=== PATIENT | male | born 1995 | race Caucasian/White ===

== ENCOUNTER 2017-01-30 00:53 | Emergency (ER) | payer OTHER ==
--- NOTE | 2017-01-30 01:14 | PDOC ---
History of Present Illness - General History Source: Patient Exam Limitations: No Limitations - History of Present Illness Initial Comments: 01/30/17 01:23 The patient is a 21-year-old male, with no significant past medical history, who presents to the ED with lower abdominal pain that began yesterday. Patient states that the pain was persistent throughout the day but he was still able to eat regularly. Pts last meal was at 3 PM. he reports vomiting 5x prior to his visit. Pt denies any fever, chills, or diarrhea. <Ximena Cooper - Last Filed: 01/30/17 01:23> - General History Source: Patient <Heriberto Thurman - Last Filed: 01/30/17 04:08> - General Stated Complaint: ABDOMINAL PAIN Time Seen by Provider: 01/30/17 01:11 Past History <Ximena Cooper - Last Filed: 01/30/17 01:23> - Past Medical History Diabetes: Yes - Psycho/Social/Smoking Cessation Hx Suicidal Ideation: No Smoking History: Never smoked <Heriberto Thurman - Last Filed: 01/30/17 04:08> - Past Medical History Allergies/Adverse Reactions: Allergies Allergy/AdvReac Type Severity Reaction Status Date / Time No Known Allergies Allergy Verified 01/30/17 01:46 Home Medications: Ambulatory Orders Insulin Glargine,Hum.rec.anlog [Lantus (nf)] 25 units SQ DAILY 01/30/17 Review of Systems - Review of Systems Able to Perform ROS?: Yes Comments:: 01/30/17 01:24 CONSTITUTIONAL: Absent: fever, no chills, no fatigue EYES: Absent: visual changes ENT: Absent: ear pain, no sore throat CARDIOVASCULAR: Absent: chest pain, no palpitations RESPIRATORY: Absent: cough, no SOB GI: Present: abdominal pain, nausea, vomiting Absent: no constipation, no diarrhea GENITOURINARY: Absent: dysuria, no frequency, no hematuria MUSKULOSKELETAL: Absent: back pain, no arthralgia SKIN: Absent: rash NEURO: Absent: headache <Ximena Cooper - Last Filed: 01/30/17 01:23> *Physical Exam - Vital Signs Last Vital Signs Temp Pulse Resp BP Pulse Ox 97.9 F 73 16 143/84 100 01/30/17 01:19 01/30/17 01:19 01/30/17 01:19 01/30/17 01:19 01/30/17 01:19 - Physical Exam Comments: 01/30/17 01:25 GENERAL: Well-appearing, well-nourished. +Moderate distress. HEENT: Normocephalic, atraumatic. PERRL, EOM intact. CARDIOVASCULAR: Normal S1, S2. Regular rate and rhythm. PULMONARY: Clear to auscultation bilaterally. ABDOMEN: Soft, non-distended, non-tender. EXTREMITIES: Normal ROM in all four extremities. No gross deformities. SKIN: Warm, dry. No rash NEUROLOGICAL: No focal neurological deficits. <Ximena Cooper - Last Filed: 01/30/17 01:23> ED Treatment Course - LABORATORY CBC & Chemistry Diagram: 01/30/17 01:25 01/30/17 01:25 <Heriberto Thurman - Last Filed: 01/30/17 04:08> Medical Decision Making - Medical Decision Making 01/30/17 04:05 Dr. Thurman: The scribe's documentation has been prepared under my direction and personally reviewed by me in its entirery. I confirm that the note above accurately reflects all work, treatment, procedures, and medical decision making performed by me. <Heriberto Thurman - Last Filed: 01/30/17 04:08> *DC/Admit/Observation/Transfer <Ximena Cooper - Last Filed: 01/30/17 01:23> - Discharge Dispostion Admit: No <Heriberto Thurman - Last Filed: 01/30/17 04:08> Diagnosis at time of Disposition: Abdominal pain Qualifiers: Abdominal location: generalized Qualified Code(s): R10.84 - Generalized abdominal pain - Discharge Dispostion Disposition: HOME Condition at time of disposition: Stable - Referrals Referrals: Armando Vazquez [Primary Care Provider] - - Patient Instructions Printed Discharge Instructions: DI for Abdominal Pain-Adult
[2017-01-30] MEDS ORDERED: PANTOPRAZOLE SODIUM 40 MG in SODIUM CHLORIDE 100 ML IVPB ONE (01:15)
[2017-01-30] MEDS ORDERED: KETOROLAC TROMETHAMINE 30 MG/1 ML VIAL IVPUSH ONE (01:15)
[2017-01-30] MEDS ORDERED: SODIUM CHLORIDE 1,000 ML IV STA ×2 (01:15→03:00)
[2017-01-30] MEDS ORDERED: ONDANSETRON 4 MG/2 ML VIAL IVPUSH STA (01:15)
[2017-01-30 01:23] VITALS: BP 143/84; PULSE 73; TEMP 97.9; BMI 22.5
[2017-01-30 01:31] LABS: BASOPHIL 0.6 % (0-2.0); MCH 28.6 pg (25.7-33.7); MEAN CELL VOLUME 84.3 fl (80-96); MEAN PLT VOLUME 8.5 fl (7.5-11.1); NEUTROPHILS 82.2 % (42.8-82.8); PLATELET COUNT 218 K/MM3 (134-434); RDW 12.5 % (11.9-15.9); WHITE BLOOD COUNT 11.7 K/mm3 (4.0-10.0)
[2017-01-30] MEDS ORDERED: PANTOPRAZOLE SODIUM 100 ML IVPB ONE (01:40)
[2017-01-30] MEDS ORDERED: KETOROLAC TROMETHAMINE 30 MG/1 ML VIAL ONE (01:40)
[2017-01-30] MEDS ORDERED: ONDANSETRON 4 MG/2 ML VIAL ONE (01:40)
[2017-01-30 02:06] LABS: URINE APPEARANCE CLEAR; URINE BILIRUBIN NEGATIVE (NEGATIVE); URINE BLOOD NEGATIVE (NEGATIVE); URINE COLOR YELLOW; URINE GLUCOSE (UA) 2+ (NEGATIVE); URINE KETONE 2+ (NEGATIVE); URINE LEUK ESTERASE NEGATIVE (NEGATIVE); URINE NITRITE NEGATIVE (NEGATIVE); URINE UROBILINOGEN NEGATIVE E.U./dl (0.2-1.0)
[2017-01-30 02:12] LABS: URINE PROTEIN 2+ (NEGATIVE)
[2017-01-30 02:14] LABS: INR 1.09 (0.82-1.09)
[2017-01-30 02:24] LABS: URINE MUCUS RARE; URINE RBC <1 /hpf (0-3); URINE WBC <1 /hpf (3-5)
[2017-01-30 02:27] LABS: ALBUMIN 4.2 g/dl (3.4-5.0); ALK PHOS 77 U/L (45-117); AMYLASE 79 U/L (25-115); ANION GAP 16 (8-16); BILIRUBIN,TOTAL 1.1 mg/dL (0.2-1.0); CALCIUM 9.7 mg/dL (8.5-10.1); CO2 22 mmol/L (21-32); GLUCOSE,RANDOM 176 mg/dL (74-106); MAGNESIUM 1.6 mg/dL (1.8-2.4); SGOT/AST 18 U/L (15-37); SGPT/ALT 23 U/L (12-78); TOT PROT 7.4 g/dl (6.4-8.2)
[2017-01-30 04:00] LABS: ACETONE SERUM NEGATIVE (NEGATIVE)
== END 2017-01-30 04:12 | disposition home or self-care (01) ==
LOC: JER 00:53
PROC: 3E0337Z Introduction of Electrolytic and Water Balance Substance into Peripheral Vein, Percutaneous Approach (ICD-10-PCS; principal; 2017-01-30)
PROC: 3E033GC Introduction of Other Therapeutic Substance into Peripheral Vein, Percutaneous Approach (ICD-10-PCS; 2017-01-30)
PROC: 3E0333Z Introduction of Anti-inflammatory into Peripheral Vein, Percutaneous Approach (ICD-10-PCS; 2017-01-30)
PROC: 3E033GC Introduction of Other Therapeutic Substance into Peripheral Vein, Percutaneous Approach (ICD-10-PCS; 2017-01-30)
DX: R10.30 Lower abdominal pain, unspecified (principal); E11.9 Type 2 diabetes mellitus without complications; Z79.4 Long term (current) use of insulin
CPT/HCPCS: 36415; 80053; 81003; 81015; 82009; 82150; 83690; 83735; 85025; 85610; 86850; 86900; 86901; 87086; 96361; 96365; 96375; 99282-25

== ENCOUNTER 2017-01-30 23:46 | Inpatient (IN) | payer OTHER ==
[2017-01-30] MEDS ORDERED: ACETAMINOPHEN INJECTION 100 ML IVPB ONE (23:51)
[2017-01-30] MEDS ORDERED: ACETAMINOPHEN 1000 MG/100 ML VIAL (NON FORMULARY) IVPB ONE (23:55)
[2017-01-31] MEDS ORDERED: SODIUM CHLORIDE 0.9% 1000 ML INFUS.BAG IV PRN (00:03)
[2017-01-31 00:04] VITALS: BMI 22.0
[2017-01-31] MEDS ORDERED: LEVOFLOXACIN 500 MG IVPB 100 ML IVPB ONE ×2 (00:06→00:32)
--- NOTE | 2017-01-31 00:07 | PDOC ---
History of Present Illness - General History Source: Patient Exam Limitations: No Limitations - History of Present Illness Initial Comments: 01/31/17 00:14 The patient is a 21 year old male with significant past medical history of diabetes who presents to the ED for fever prior to arrival. Patient was seen here yesterday for abdominal pain, nausea, and vomiting. He was treated and release. Today he returns for a fever tmax 104. States his abdominal pain, nausea, and vomiting has resolved. Denies chills or diaphoresis. The patient denies cough, SOB, chest pain, palpitations, and diarrhea. Allergies: NKDA Social History: No alcohol, tobacco, or drug use reported. Past Surgical History: None reported PCP: None reported <Stella Feldman - Last Filed: 01/31/17 03:46> - General History Source: Patient <JairoHeriberto leone - Last Filed: 01/31/17 19:30> - General Chief Complaint: SIRS, Suspected/Possible Stated Complaint: TACHYCARDIA Time Seen by Provider: 01/31/17 00:02 Past History <Stella Feldman - Last Filed: 01/31/17 03:46> - Past Medical History Diabetes: Yes - Psycho/Social/Smoking Cessation Hx Suicidal Ideation: No Smoking History: Never smoked Have you smoked in the past 12 months: No Hx Alcohol Use: No Drug/Substance Use Hx: No <Heriberto Thurman - Last Filed: 01/31/17 19:30> - Past Medical History Allergies/Adverse Reactions: Allergies Allergy/AdvReac Type Severity Reaction Status Date / Time No Known Allergies Allergy Verified 01/30/17 01:46 Home Medications: Ambulatory Orders Insulin Glargine,Hum.rec.anlog [Lantus (nf)] 25 units SQ DAILY 01/30/17 Review of Systems - Review of Systems Able to Perform ROS?: Yes Comments:: 01/31/17 00:14 CONSTITUTIONAL: +fever Absent: no chills, no fatigue EYES: Absent: visual changes ENT: Absent: ear pain, no sore throat CARDIOVASCULAR: Absent: chest pain, no palpitations RESPIRATORY: Absent: cough, no SOB GI: Absent: abdominal pain, no nausea, no vomiting, no constipation, no diarrhea GENITOURINARY: Absent: dysuria, no frequency, no hematuria MUSCULOSKELETAL: Absent: back pain, no arthralgia, no myalgia SKIN: Absent: rash NEURO: Absent: headache <Stella Feldman - Last Filed: 01/31/17 03:46> *Physical Exam - Vital Signs Last Vital Signs Temp Pulse Resp BP Pulse Ox 104.3 F H 160 H 26 H 100/60 98 01/30/17 23:55 01/30/17 23:55 01/30/17 23:55 01/30/17 23:55 01/30/17 23:55 - Physical Exam Comments: 01/31/17 00:14 GENERAL: Well-appearing, well-nourished. No apparent distress. HEENT: Normocephalic, atraumatic. PERRL, EOM intact. CARDIOVASCULAR: Tachycardia. Regular rhythm. Normal S1, S2. PULMONARY: Clear to auscultation bilaterally. ABDOMEN: Soft, non-distended, non-tender. No rebound or guarding. EXTREMITIES: Normal ROM in all four extremities. No gross deformities. SKIN: Warm, dry. No rash NEUROLOGICAL: No focal neurological deficits. <Stella Feldman - Last Filed: 01/31/17 03:46> Heart Score/ECG Review - ECG Impressions Comment:: 01/31/17 00:28 Sinus tachycardia @111bpm Otherwise normal ECG <Stella Feldman - Last Filed: 01/31/17 03:46> ED Treatment Course - LABORATORY CBC & Chemistry Diagram: 01/31/17 00:25 01/31/17 00:25 - RADIOLOGY Radiograph Interpretation: 01/31/17 03:46 EXAM: CT abdomen and pelvis with contrast Reviewed by Imaging combination presser: FINDINGS: Lung bases are clear. The visualized cardiac chambers are normal size and configuration. Normal liver, gallbladder, pancreas, spleen, adrenal glands and kidneys. The stomach and abdominal small and large bowel are normal. There is no aortic aneurysm. There is no significant retroperitoneal lymphadenopathy. The pelvic small and large bowel are normal. [place] is dilated and mildly inflamed, consistent with acute appendicitis. There is no abscess or free air. The urinary bladder and prostate gland are normal. No pelvic free fluid is identified. There is no significant pelvic lymphadenopathy. IMPRESSION: Acute appendicitis without abscess or free air. - Medications Given in the ED: ED Medications Discontinued Medications Generic Name Dose Route Start Last Admin Trade Name Freq PRN Reason Stop Dose Admin Acetaminophen 1,000 mg 01/30/17 23:55 01/30/17 23:55 Ofirmev Injection - IVPB 01/30/17 23:56 1,000 mg NOW ONE Administration <Stella Feldman - Last Filed: 01/31/17 03:46> - LABORATORY CBC & Chemistry Diagram: 01/31/17 06:00 01/31/17 06:00 - Medications Given in the ED: ED Medications Discontinued Medications Generic Name Dose Route Start Last Admin Trade Name Freq PRN Reason Stop Dose Admin Acetaminophen 1,000 mg 01/30/17 23:55 01/30/17 23:55 Ofirmev Injection - IVPB 01/30/17 23:56 1,000 mg NOW ONE Administration <Heriberto Thurman - Last Filed: 01/31/17 19:30> *DC/Admit/Observation/Transfer - Attestations Scribe Attestion: 01/31/17 00:14 Documentation prepared by Stella Feldman, acting as certified medical dosimetrist for Heriberto Thurman MD/DO. <Stella Feldman - Last Filed: 01/31/17 03:46> - Discharge Dispostion Admit: Yes <Heriberto Thurman - Last Filed: 01/31/17 19:30> Diagnosis at time of Disposition: Appendicitis Qualifiers: Appendicitis type: acute appendicitis Acute appendicitis type: unspecified acute appendicitis type Qualified Code(s): K35.80 - Unspecified acute appendicitis
[2017-01-31 00:33] LABS: VENOUS BLOOD GAS HCO3 18.5 meq/L (19-25); VENOUS PH 7.33 (7.32-7.42)
[2017-01-31 00:39] LABS: BASOPHIL 0.3 % (0-2.0); EOSINOPHIL 0.1 % (0-4.5); MCH 29.4 pg (25.7-33.7); MCHC 34.4 g/dl (32.0-35.9); MEAN CELL VOLUME 85.5 fl (80-96); MEAN PLT VOLUME 8.7 fl (7.5-11.1); NEUTROPHILS 71.9 % (42.8-82.8); PLATELET COUNT 138 K/MM3 (134-434); RDW 12.3 % (11.9-15.9); WHITE BLOOD COUNT 2.3 K/mm3 (4.0-10.0)
[2017-01-31 00:52] LABS: INR 1.25 (0.82-1.09); PROTHROMBIN TIME (PATIENT) 13.8 SEC (9.98-11.88)
[2017-01-31 00:55] LABS: ACTIVATED PTT 27.6 SECONDS (26.9-34.4)
[2017-01-31 01:27] LABS: ALBUMIN 3.2 g/dl (3.4-5.0); ANION GAP 12 (8-16); CALCIUM 7.9 mg/dL (8.5-10.1); CO2 23 mmol/L (21-32); CREATININE 0.9 mg/dL (0.7-1.3); GLUCOSE,RANDOM 250 mg/dL (74-106); SGOT/AST 12 U/L (15-37); SGPT/ALT 16 U/L (12-78)
[2017-01-31 01:31] LABS: ALK PHOS 59 U/L (45-117); BILIRUBIN,TOTAL 0.8 mg/dL (0.2-1.0); TOT PROT 5.5 g/dl (6.4-8.2); TROPONIN I < 0.02 ng/ml (0.00-0.05)
[2017-01-31 01:52] LABS: AMYLASE 49 U/L (25-115)
[2017-01-31 01:54] LABS: URINE APPEARANCE CLEAR; URINE BILIRUBIN NEGATIVE (NEGATIVE); URINE BLOOD NEGATIVE (NEGATIVE); URINE COLOR STRAW; URINE GLUCOSE (UA) 3+ (NEGATIVE); URINE KETONE NEGATIVE (NEGATIVE); URINE LEUK ESTERASE NEGATIVE (NEGATIVE); URINE NITRITE NEGATIVE (NEGATIVE); URINE PROTEIN NEGATIVE (NEGATIVE); URINE UROBILINOGEN NEGATIVE E.U./dl (0.2-1.0)
[2017-01-31] MEDS ORDERED: METRONIDAZOLE 500 MG PREMIXED 100 ML IVPB ONE ×2 (03:47→03:53)
[2017-01-31] MEDS ORDERED: ONDANSETRON 4 MG/2 ML VIAL ONE (04:13)
[2017-01-31] MEDS ORDERED: morphine CARPU-JECT 2 MG/1 ML DISP.SYRIN ONE (04:13)
[2017-01-31] MEDS ORDERED: ONDANSETRON 4 MG/2 ML VIAL IVPUSH ONE (04:19)
[2017-01-31] MEDS ORDERED: morphine CARPU-JECT 2 MG/1 ML DISP.SYRIN IVPUSH ONE (04:20)
--- NOTE | 2017-01-31 04:30 | HP ---
CHIEF COMPLAINT: fevers, sob, back pain HISTORY OF PRESENT ILLNESS: 21 y/o Ukrainian speaking M w/PMH of DM presents to ER after being discharged from ER earlier last night, this time w/complaints of fevers, sob from back pain located in mid lower back. History translated by sister in room. Pt came in earlier into ER for N/V with 5 episodes of vomiting and felt better s/p meds in ER and was discharged home. After returning home since the morning pt has had continuing nausea but no vomiting, subjective fevers, back pain in mid lower back and sob from pain in back. He also c/o feeling cold and having shakes and generalized weakness and palpitations. He was able to eat a little bit earlier today. He took some tylenol with mild relief of symptoms. He denies any CP, cough, LOC, sick contacts, diarrhea, blood in stool, dysuria, blood in urine, peripheral swelling. ER course was notable for: (1) Metronidazole, Levaquin, zofran, Morphine, IV ofirmev, CT abd, CXR (2) (3) Recent Travel: denies PAST MEDICAL HISTORY: Diabetes PAST SURGICAL HISTORY: Denies Social History: Smoking: denies Alcohol: denies Drugs: denies Family History: Mother: HTN; Father: DM Allergies No Known Allergies Allergy (Verified 01/30/17 01:46) HOME MEDICATIONS: Home Medications Medication Instructions Recorded Insulin Glargine,Hum.rec.anlog 25 units SQ DAILY 01/30/17 [Lantus (nf)] REVIEW OF SYSTEMS CONSTITUTIONAL: +fevers, chills, generalized weakness Absent: malaise, loss of appetite, weight change HEENT: Absent: visual changes CARDIOVASCULAR: +palpitations Absent: chest pain, syncope, lightheadedness, peripheral edema RESPIRATORY: +sob Absent: cough, dyspnea with exertion, wheezing GASTROINTESTINAL: +nausea Absent: vomiting, diarrhea, constipation, melena, hematochezia GENITOURINARY: Absent: dysuria, hesitancy, hematuria MUSCULOSKELETAL: +back pain, mid lower back NEUROLOGIC: Absent: headache, dizziness, unsteady gait, seizure PHYSICAL EXAMINATION Vital Signs - 24 hr 01/30/17 01/31/17 23:55 03:40 Temperature 104.3 F H 99.8 F H Pulse Rate 160 H 109 H Pulse Rate [ 109 H Apical] Respiratory 26 H 18 Rate Blood Pressure 100/60 O2 Sat by Pulse 98 99 Oximetry (%) GENERAL: Awake, alert, and fully oriented, in no acute distress. HEAD: Normal with no signs of trauma. EYES: extraocular movements intact, sclera anicteric, conjunctiva clear. No lid lag. EARS, NOSE, THROAT: Ears normal, nares patent, oropharynx clear without exudates. Moist mucous membranes. NECK: Normal range of motion, supple LUNGS: Breath sounds equal, clear to auscultation bilaterally. No wheezes, and no crackles. No accessory muscle use. HEART: tachycardic, normal S1 and S2 without murmur, rub or gallop. ABDOMEN: RLQ tenderness, LLQ tenderness, obturator sign positive, normoactive bowel sounds. MUSCULOSKELETAL: No bony deformities or tenderness. +R CVA tenderness LOWER EXTREMITIES: 2+ pulses, warm, well-perfused. No calf tenderness. No peripheral edema. NEUROLOGICAL: Normal speech. Gait not observed. PSYCHIATRIC: Cooperative. Good eye contact. Appropriate mood and affect. SKIN: Warm, dry Laboratory Results - last 24 hr 01/31/17 01/31/17 01/31/17 00:03 00:20 00:25 WBC 2.3 L D RBC 4.70 Hgb 13.8 D Hct 40.2 D MCV 85.5 MCHC 34.4 RDW 12.3 Plt Count 138 D MPV 8.7 Neutrophils % 71.9 Lymphocytes % 26.2 D Monocytes % 1.5 L Eosinophils % 0.1 D Basophils % 0.3 INR PTT (Actin FS) VBG pH 7.33 POC VBG pCO2 35.8 L POC VBG pO2 49.9 H Mixed VBG HCO3 18.5 L Sodium Potassium Chloride Carbon Dioxide Anion Gap BUN Creatinine Creat Clearance w eGFR Random Glucose Lactic Acid Calcium Total Bilirubin AST ALT Alkaline Phosphatase Creatine Kinase Troponin I Total Protein Albumin Total Amylase 49 D Lipase 61 L Urine Color Urine Appearance Urine pH Urine Protein Urine Glucose (UA) Urine Ketones Urine Blood Urine Nitrite Urine Bilirubin Urine Urobilinogen Ur Leukocyte Esterase Blood Type Antibody Screen 01/31/17 01/31/17 01/31/17 00:25 00:25 00:30 WBC RBC Hgb Hct MCV MCHC RDW Plt Count MPV Neutrophils % Lymphocytes % Monocytes % Eosinophils % Basophils % INR 1.25 H PTT (Actin FS) 27.6 VBG pH POC VBG pCO2 POC VBG pO2 Mixed VBG HCO3 Sodium 140 Potassium 3.7 Chloride 105 Carbon Dioxide 23 Anion Gap 12 BUN 10 D Creatinine 0.9 Creat Clearance w eGFR > 60 Random Glucose 250 H D Lactic Acid Calcium 7.9 L Total Bilirubin 0.8 D AST 12 L D ALT 16 D Alkaline Phosphatase 59 D Creatine Kinase 147 Troponin I < 0.02 Total Protein 5.5 L D Albumin 3.2 L D Total Amylase Lipase Urine Color Urine Appearance Urine pH Urine Protein Urine Glucose (UA) Urine Ketones Urine Blood Urine Nitrite Urine Bilirubin Urine Urobilinogen Ur Leukocyte Esterase Blood Type O NEGATIVE Antibody Screen Negative 01/31/17 01/31/17 01:20 01:43 WBC RBC Hgb Hct MCV MCHC RDW Plt Count MPV Neutrophils % Lymphocytes % Monocytes % Eosinophils % Basophils % INR PTT (Actin FS) VBG pH POC VBG pCO2 POC VBG pO2 Mixed VBG HCO3 Sodium Potassium Chloride Carbon Dioxide Anion Gap BUN Creatinine Creat Clearance w eGFR Random Glucose Lactic Acid 2.2 H* Calcium Total Bilirubin AST ALT Alkaline Phosphatase Creatine Kinase Troponin I Total Protein Albumin Total Amylase Lipase Urine Color Straw Urine Appearance Clear Urine pH 6.0 D Urine Protein Negative Urine Glucose (UA) 3+ H Urine Ketones Negative Urine Blood Negative Urine Nitrite Negative Urine Bilirubin Negative Urine Urobilinogen Negative Ur Leukocyte Esterase Negative Blood Type Antibody Screen Imaging: EXAM: CT abdomen and pelvis with contrast Reviewed by Imaging party plan salesperson: FINDINGS: Lung bases are clear. The visualized cardiac chambers are normal size and configuration. Normal liver, gallbladder, pancreas, spleen, adrenal glands and kidneys. The stomach and abdominal small and large bowel are normal. There is no aortic aneurysm. There is no significant retroperitoneal lymphadenopathy. The pelvic small and large bowel are normal. [place] is dilated and mildly inflamed, consistent with acute appendicitis. There is no abscess or free air. The urinary bladder and prostate gland are normal. No pelvic free fluid is identified. There is no significant pelvic lymphadenopathy. IMPRESSION: Acute appendicitis without abscess or free air. CXR: No acute pathology, pending official read EKG: Sinus tachy @ 111 bpm ASSESSMENT/PLAN: 21 y/o M w/PMH of DM presents to ER with fevers, chills, rigors, nausea and mid lower back pain found to have acute appendicitis on CT abd/pelvis. -Sepsis secondary to appendicitis -SIRS 3/4 (tachy, WBC <4, febrile at 104.3 on presentation) -Lactic acid 2.2, trend -f/u BCx, UCx, official CT read -given levaquin and flagyl in ER -will c/w rocephin 1g qd iv and flagyl 500 mg iv q8h -NS @ 200 ml/hr x2L (reassess blood pressure and give fluids accordingly); morphine 2mg iv q6h prn for pain; zofran 4 mg IV q6h prn -for fevers, consider iv ofirmev or iv ibuprofen if kidney function remains stable as pt is npo -NPO -Surgery consulted -stat CBC ordered as WBC count is now 2.3, compared to last night which was 11.7 -DM -BGMs, ISS q4h -DVT ppx -SCDs -FEN -NS @ 200 ml/hr x2L (reassess blood pressure and give fluids accordingly) -Monitor electrolytes -NPO -Dispo: -Admit to M/S Visit type - Emergency Visit Emergency Visit: Yes ED Registration Date: 01/31/17 Care time: The patient presented to the Emergency Department on the above date and was hospitalized for further evaluation of their emergent condition. - New Patient This patient is new to me today: Yes Date on this admission: 01/31/17 - Critical Care Critical Care patient: No
[2017-01-31] MEDS ORDERED: ONDANSETRON 4 MG/2 ML VIAL IVPUSH PRN ×2 (05:10→15:49)
[2017-01-31] MEDS ORDERED: morphine CARPU-JECT 2 MG/1 ML DISP.SYRIN IVPUSH PRN ×2 (05:10→07:41)
[2017-01-31] MEDS ORDERED: SODIUM CHLORIDE 1,000 ML IV SCH ×2 (05:15→05:23)
--- NOTE | 2017-01-31 05:17 | PN ---
Teaching Attending Note Name of Resident: Gunnar Rico ATTENDING PHYSICIAN STATEMENT I saw and evaluated the patient. I reviewed the resident's note and discussed the case with the resident. I agree with the resident's findings and plan as documented. SUBJECTIVE: Patient is a 21 y/o English speaking M w/PMH of DM presents to ER after being discharged from ER earlier last night, came in c/o having severe RLQ pain with fever of 104 as per sister who is slip injector and applicator. No nausea or vomiting , no rigors. ER course was notable for: OBJECTIVE: Vital Signs Temperature 99.8 F H 01/31/17 03:40 Pulse Rate 109 H 01/31/17 03:40 Respiratory Rate 22 01/31/17 03:40 Blood Pressure 100/60 01/30/17 23:55 O2 Sat by Pulse Oximetry (%) 99 01/31/17 03:40 CBCD WBC 2.3 K/mm3 (4.0-10.0) L D 01/31/17 00:25 RBC 4.70 M/mm3 (4.00-5.60) 01/31/17 00:25 Hgb 13.8 GM/dL (11.7-16.9) D 01/31/17 00:25 Hct 40.2 % (35.4-49) D 01/31/17 00:25 MCV 85.5 fl (80-96) 01/31/17 00:25 MCHC 34.4 g/dl (32.0-35.9) 01/31/17 00:25 RDW 12.3 % (11.9-15.9) 01/31/17 00:25 Plt Count 138 K/MM3 (134-434) D 01/31/17 00:25 MPV 8.7 fl (7.5-11.1) 01/31/17 00:25 CMP Sodium 140 mmol/L (136-145) 01/31/17 00:25 Potassium 3.7 mmol/L (3.5-5.1) 01/31/17 00:25 Chloride 105 mmol/L (98-107) 01/31/17 00:25 Carbon Dioxide 23 mmol/L (21-32) 01/31/17 00:25 Anion Gap 12 (8-16) 01/31/17 00:25 BUN 10 mg/dL (7-18) D 01/31/17 00:25 Creatinine 0.9 mg/dL (0.7-1.3) 01/31/17 00:25 Creat Clearance w eGFR > 60 (>60) 01/31/17 00:25 Random Glucose 250 mg/dL (74-106) H D 01/31/17 00:25 Calcium 7.9 mg/dL (8.5-10.1) L 01/31/17 00:25 Total Bilirubin 0.8 mg/dL (0.2-1.0) D 01/31/17 00:25 AST 12 U/L (15-37) L D 01/31/17 00:25 ALT 16 U/L (12-78) D 01/31/17 00:25 Alkaline Phosphatase 59 U/L (45-117) D 01/31/17 00:25 Total Protein 5.5 g/dl (6.4-8.2) L D 01/31/17 00:25 Albumin 3.2 g/dl (3.4-5.0) L D 01/31/17 00:25 CARDIAC ENZYMES Creatine Kinase 147 IU/L (39-308) 01/31/17 00:25 Troponin I < 0.02 ng/ml (0.00-0.05) 01/31/17 00:25 Current Medications Generic Name Dose Route Start Last Admin Trade Name Freq PRN Reason Stop Dose Admin Sodium Chloride 1,000 mls @ 100 mls/hr 01/31/17 05:15 Normal Saline - IV ASDIR [facility] Ceftriaxone Sodium 1 gm/ 100 mls @ 200 mls/hr 01/31/17 10:00 Dextrose IVPB DAILY [facility] Metronidazole 100 mls @ 100 mls/hr 01/31/17 12:00 Flagyl 500mg Premixed Ivpb - IVPB Q8H-IV [facility] Insulin Aspart 1 vial 01/31/17 07:00 Novolog Vial Sliding Scale - SQ TIDAC [facility] Protocol Morphine Sulfate 2 mg 01/31/17 05:10 Morphine Injection - IVPUSH Q6H PRN PAIN Ondansetron HCl 4 mg 01/31/17 05:10 Zofran Injection IVPUSH Q6H PRN NAUSEA Sodium Chloride 1,000 ml 01/31/17 00:03 Normal Saline - IV Q20M PRN MAP<65mm Hg OR SBP <90 Home Medications Medication Instructions Recorded Insulin Glargine,Hum.rec.anlog 25 units SQ DAILY 01/30/17 [Lantus (nf)] PE: as per resident's note abdomen RLQ severe tenderness with rebound, voluntary guarding. CT abdomen and pelvis with contrast IMPRESSION: Acute appendicitis without abscess or free air. CXR: No acute pathology, pending official read EKG: Sinus tachy @ 111 bpm ASSESSMENT/PLAN: 21 y/o M w/PMHx of DM presents to ER with fevers, chills, rigors, nausea and mid lower back pain found to have acute appendicitis on CT abd/pelvis. # Acute severe Sepsis secondary to appendicitis: on iV antibiotic Rocephin/ flagyl ,iVF 200cc/hr, Lactic acid 2.2, trend, Septic culture ordered, NPO, on morphine, zofran, surgical consult # Acute appendicitis surgical consult for OR today # DM : BGMs, q4h DVT ppx: SCDs
[2017-01-31] MEDS ORDERED: INSULIN SLIDING SCALE (NOVOLOG) 1 VIAL SQ SCH (07:00)
[2017-01-31] MEDS: INSULIN SLIDING SCALE (NOVOLOG) 1 VIAL SQ SCH ×5 (07:13→21:59)
[2017-01-31 07:41] LABS: INR 1.42 (0.82-1.09); PROTHROMBIN TIME (PATIENT) 15.7 SEC (9.98-11.88)
[2017-01-31 07:49] LABS: BASOPHIL 0.2 % (0-2.0); MCH 29.7 pg (25.7-33.7); MCHC 34.6 g/dl (32.0-35.9); MEAN PLT VOLUME 8.8 fl (7.5-11.1); NEUTROPHILS 89.1 % (42.8-82.8); PLATELET COUNT 121 K/MM3 (134-434); RDW 12.7 % (11.9-15.9)
[2017-01-31] MEDS ORDERED: ACETAMINOPHEN 1000 MG/100 ML VIAL (NON FORMULARY) IVPB PRN ×2 (07:53→15:49)
[2017-01-31 08:12] LABS: ALBUMIN 3.1 g/dl (3.4-5.0); ALK PHOS 72 U/L (45-117); ANION GAP 8 (8-16); BILIRUBIN,TOTAL 0.6 mg/dL (0.2-1.0); CALCIUM 8.3 mg/dL (8.5-10.1); CO2 29 mmol/L (21-32); GLUCOSE,RANDOM 103 mg/dL (74-106); SGOT/AST 73 U/L (15-37); SGPT/ALT 45 U/L (12-78); TOT PROT 5.6 g/dl (6.4-8.2)
[2017-01-31 08:20] LABS: MAGNESIUM 1.6 mg/dL (1.8-2.4); PHOSPHOROUS 1.2 mg/dL (2.5-4.9)
[2017-01-31] MEDS ORDERED: MAGNESIUM SULF 50% (8.12 MEQ/2 ML-1 GM VIAL) IVPB ONE (08:44)
[2017-01-31] MEDS ORDERED: POTASSIUM PHOSPHATE 30 MM in DEXTROSE 5%-WATER - 250 ML IVPB ONE (08:44)
[2017-01-31] MEDS ORDERED: SODIUM CHLORIDE 1,000 ML IV STA (09:27)
[2017-01-31] MEDS ORDERED: HYDROmorphone HCL CARPU-JECT 1 MG/1 ML DISP.SYRIN IVPB PRN (09:28)
[2017-01-31] MEDS ORDERED: CEFTRIAXONE 1 GM in DEXTROSE 5%-WATER - 100 ML IVPB SCH (10:00)
[2017-01-31] MEDS ORDERED: cefTRIAXone 1 GM/50 ML BAG (PRE-DOCKED) IVPB SCH (10:00)
[2017-01-31] MEDS ORDERED: METRONIDAZOLE 500 MG PREMIXED 100 ML IVPB SCH (10:00)
--- NOTE | 2017-01-31 11:08 | EKG ---
Test Reason : Blood Pressure : / mmHG Vent. Rate : 111 BPM Atrial Rate : 111 BPM P-R Int : 124 ms QRS Dur : 082 ms QT Int : 314 ms P-R-T Axes : 063 067 025 degrees QTc Int : 427 ms SINUS TACHYCARDIA OTHERWISE NORMAL ECG NO PREVIOUS ECGS AVAILABLE Confirmed by LIZETTE ORTIZ MD ([id number]) on 01/31/2017 11:08:12 AM Referred By: Confirmed By:LIZETTE ORTIZ MD
[2017-01-31] MEDS ORDERED: DEXTROSE 50%-WATER 50 ML DISP.SYRIN ONE (12:21)
[2017-01-31] MEDS ORDERED: DEXTROSE 50%-WATER 50 ML DISP.SYRIN IVPUSH ONE (12:59)
[2017-01-31] MEDS ORDERED: BUPIVACAINE HCL/PF 0.5% (5MG/ML) 10 ML VIAL ONE (13:49)
--- NOTE | 2017-01-31 14:18 | PN ---
Physical Exam: SUBJECTIVE: Patient seen and examined by me at bedside. Patient continues to have fevers overnight. Patient complaints of weakness and chills. Reports having pain and tenderness of the RLQ and LLQ. Patient was told that surgery will likely happen today and is in agreement. Otherwise, patient denies shortness of breath and chest pain. OBJECTIVE: Vital Signs Period Temp Pulse Resp BP Sys/Newman Pulse Ox Last 24 Hr 97.6 F-101.4 F 89-102 18-20 78-118/46-69 100-100 GENERAL: Awake, alert, fully oriented, ill appearing and anxious LUNGS: Breath sounds equal, clear to auscultation bilaterally. No wheezes, and no crackles. No accessory muscle use. HEART: Tachycardic with regular rhythm, normal S1 and S2 without murmur, rub or gallop. ABDOMEN: Tenderness of RLQ and LLQ upon palpation. (+) Rovsing sign, (+) McBurney's signs LOWER EXTREMITIES: No peripheral edema. NEUROLOGICAL: Normal speech, no focal neuro deficits Laboratory Results - last 24 hr 01/31/17 01/31/17 01/31/17 04:20 06:00 06:00 WBC 5.0 D RBC 4.98 Hgb 14.8 Hct 42.8 MCV 86.0 MCHC 34.6 RDW 12.7 Plt Count 121 L MPV 8.8 Neutrophils % 89.1 H D Lymphocytes % 8.3 D Monocytes % 2.4 L Eosinophils % 0.0 D Basophils % 0.2 INR Sodium 141 Potassium 3.5 Chloride 104 Carbon Dioxide 29 D Anion Gap 8 BUN 9 Creatinine 1.0 Creat Clearance w eGFR > 60 POC Glucometer Random Glucose 103 D Lactic Acid 2.3 H* Calcium 8.3 L Phosphorus Magnesium Total Bilirubin 0.6 D AST 73 H D ALT 45 D Alkaline Phosphatase 72 D Total Protein 5.6 L Albumin 3.1 L 01/31/17 01/31/17 01/31/17 06:00 06:00 06:00 WBC RBC Hgb Hct MCV MCHC RDW Plt Count MPV Neutrophils % Lymphocytes % Monocytes % Eosinophils % Basophils % INR 1.42 H Sodium Potassium Chloride Carbon Dioxide Anion Gap BUN Creatinine Creat Clearance w eGFR POC Glucometer Random Glucose Lactic Acid 2.3 H* Calcium Phosphorus 1.2 L Magnesium 1.6 L Total Bilirubin AST ALT Alkaline Phosphatase Total Protein Albumin 01/31/17 01/31/17 01/31/17 07:09 12:08 12:47 WBC RBC Hgb Hct MCV MCHC RDW Plt Count MPV Neutrophils % Lymphocytes % Monocytes % Eosinophils % Basophils % INR Sodium Potassium Chloride Carbon Dioxide Anion Gap BUN Creatinine Creat Clearance w eGFR POC Glucometer 100 66 Random Glucose Lactic Acid 1.3 Calcium Phosphorus Magnesium Total Bilirubin AST ALT Alkaline Phosphatase Total Protein Albumin 01/31/17 13:40 WBC RBC Hgb Hct MCV MCHC RDW Plt Count MPV Neutrophils % Lymphocytes % Monocytes % Eosinophils % Basophils % INR Sodium Potassium Chloride Carbon Dioxide Anion Gap BUN Creatinine Creat Clearance w eGFR POC Glucometer 162 Random Glucose Lactic Acid Calcium Phosphorus Magnesium Total Bilirubin AST ALT Alkaline Phosphatase Total Protein Albumin Active Medications Generic Name Dose Route Start Last Admin Trade Name Freq PRN Reason Stop Dose Admin Acetaminophen 1,000 mg 01/31/17 07:53 01/31/17 08:20 Ofirmev Injection - IVPB 02/01/17 01:54 1,000 mg Q6H PRN Administration FEVER OR PAIN Ceftriaxone Sodium 1 gm 01/31/17 10:00 01/31/17 10:51 Rocephin 1gm Ivpb (Pre-Docked) IVPB 1 gm DAILY RADHA Administration Hydromorphone HCl 1 mg 01/31/17 09:28 01/31/17 12:17 Dilaudid Injection - IVPB 1 mg Q4H PRN Administration PAIN Metronidazole 100 mls @ 100 mls/hr 01/31/17 10:00 01/31/17 10:51 Flagyl 500mg Premixed Ivpb - IVPB 100 mls/hr Q8H-IV RADHA Administration Sodium Chloride 1,000 mls @ 200 mls/hr 01/31/17 05:23 01/31/17 07:12 Normal Saline - IV 02/01/17 10:14 200 mls/hr ASDIR RADHA Administration Potassium Phosphate 30 mm/ 260 mls @ 43.333 mls/hr 01/31/17 08:44 01/31/17 12: 18 Dextrose IVPB 01/31/17 14:43 43.333 mls/hr ONCE ONE Administration Insulin Aspart 1 vial 01/31/17 06:00 01/31/17 12:18 Novolog Vial Sliding Scale - SQ Not Given Q4HPO RADHA Protocol Ondansetron HCl 4 mg 01/31/17 05:10 Zofran Injection IVPUSH Q6H PRN NAUSEA Sodium Chloride 1,000 ml 01/31/17 00:03 Normal Saline - IV Q20M PRN MAP<65mm Hg OR SBP <[address] Abdo/Pelvis: Lung bases are clear. The visualized cardiac chambers are normal size and configuration. Normal liver, gallbladder, pancreas, spleen, adrenal glands and kidneys. The stomach and abdominal small and large bowel are normal. There is no aortic aneurysm. There is no significant retroperitoneal lymphadenopathy. The pelvic small and large bowel are normal. Comfort is dilated and mildly inflamed, consistent with acute appendicitis. There is no abscess or free air. The urinary bladder and prostate gland are normal. No pelvic free fluid is identified. There is no significant pelvic lymphadenopathy. IMPRESSION: Acute appendicitis without abscess or free air. Chest X-Ray: No acute pathology EKG: Sinus tachy @ 111 bpm ASSESSMENT/PLAN: Patient is a 21 year old male with a PMHx of DMI who presented for fevers, chills, nausea, abdominal pain and was found to be Septic. CT abdomen revealed Appendicitis and patient was admitted to med/surg for further monitoring and management. Sepsis Secondary to Bacteremia from Acute Appendicitis -Repeat Lactic 2.3, 1 Bolus ordered -Continue Normal Saline @200mls after two bags -Continue with Rocephin 1gm IVPB daily and Flagyl 500mg IV q8h DAY #1 -Morphine discontinued and switched to Dilaudid 1gm Q4H due to uncontrolled pain -IV Tylenol 1gm Q6H for fevers -NPO for surgery -Cultures growing gram negative -ID consult placed -Currently in Surgery IDDM I -BGM -ISS -Had episode of hypoglycemia, 1 amp of D50 given F/E/N -IV NS @200mls/hr -Electrolytes wnl -NPO until surgery Prophylaxis -SCD's for DVT Disposition -Full code -Waiting for Surgery Visit type - Emergency Visit Emergency Visit: Yes ED Registration Date: 01/31/17 Care time: The patient presented to the Emergency Department on the above date and was hospitalized for further evaluation of their emergent condition. - New Patient This patient is new to me today: Yes Date on this admission: 02/01/17 - Critical Care Critical Care patient: No
[2017-01-31] MEDS ORDERED: PROPOFOL 20 ML ONE (14:21)
[2017-01-31] MEDS ORDERED: LIDOCAINE HCL/PF 2% SDV 5ML VIAL ONE (14:21)
[2017-01-31] MEDS ORDERED: ROCURONIUM BROMIDE 50 MG/5 ML VIAL ONE (14:22)
--- NOTE | 2017-01-31 14:27 | CONSULT ---
Consult Consult Specialty:: Surgery Reason for Consultation:: Abdominal pain , ? acute appendicitis, Daibetes mellitus - History of Present Illness Chief Complaint: Abdominal pain x 2 days History of Present Illness: C/O Right lower quadrant abdominal pain for 2 days, associated with vomitimg. Was in the ER about 2 days ago and was sent home. He returned with persistent pain and was admitted, and found to have acute appendicitis. - History Source History Provided By: Patient, Family Member (Sister speaks [place] very well.) Limitations to Obtaining History: No Limitations - Past Medical History Endocrine: Yes: Diabetes Mellitus (On insulin) - Alcohol/Substance Use Hx Alcohol Use: No - Smoking History Smoking history: Never smoked Have you smoked in the past 12 months: No Home Medications - Allergies Allergies/Adverse Reactions: Allergies Allergy/AdvReac Type Severity Reaction Status Date / Time No Known Allergies Allergy Verified 01/30/17 01:46 - Home Medications Home Medications: Ambulatory Orders Insulin Glargine,Hum.rec.anlog [Lantus (nf)] 25 units SQ DAILY 01/30/17 Physical Exam Vital Signs: Vital Signs Temperature 99.6 F 01/31/17 11:14 Pulse Rate 89 01/31/17 11:14 Respiratory Rate 20 01/31/17 11:14 Blood Pressure 109/52 01/31/17 11:14 O2 Sat by Pulse Oximetry (%) 100 01/31/17 11:01 Gastrointestinal: Yes: Tenderness (Tender in right lowerv quadrant with guarding.) Labs: CBC, BMP 01/31/17 06:00 01/31/17 06:00 Imaging - Results Cat Scan: Image Reviewed Problem List - Problems (1) Abdominal pain Code(s): R10.9 - UNSPECIFIED ABDOMINAL PAIN Qualifiers: Abdominal location: right lower quadrant Qualified Code(s): R10.31 - Right lower quadrant pain (2) Abdominal pain, right lower quadrant Code(s): R10.31 - RIGHT LOWER QUADRANT PAIN (3) Acute appendicitis Code(s): K35.80 - UNSPECIFIED ACUTE APPENDICITIS Qualifiers: Acute appendicitis type: with localized peritonitis Qualified Code(s ): K35.3 - Acute appendicitis with localized peritonitis (4) Diabetes 1.5, managed as type 1 Code(s): E10.9 - TYPE 1 DIABETES MELLITUS WITHOUT COMPLICATIONS Assessment/Plan Patient and his sister were informed of the findings and need for appendectomy. Consent obtained , risks, benefits and complications explained. Antibiotics given. For surgery.
[2017-01-31] MEDS ORDERED: BUPIVACAINE HCL/PF 0.5% (5MG/ML) 10 ML VIAL IJ ONE (14:55)
[2017-01-31] MEDS ORDERED: NEOSTIGMINE METHYLSULFATE 0.5 MG/ML - 10 ML MDV ONE (15:04)
[2017-01-31] MEDS ORDERED: GLYCOPYRROLATE 0.2 MG/1 ML VIAL ONE (15:04)
--- NOTE | 2017-01-31 15:10 | OP ---
Operative Note - Note: Operative Date: 01/31/17 Pre-Operative Diagnosis: Acute appendicitis Operation: Laparoscopic appendectomy. Findings: Acute appendicitis, with purulent exudate on the surface of the appendix. Post-Operative Diagnosis: Same as Pre-op Surgeon: Shamika Carrizales Anesthesiologist/SENIOR PASTOR: Willy White Anesthesia: General Specimens Removed: Appendix. Estimated Blood Loss (mls): 5 Operative Report Dictated: Yes
[2017-01-31] MEDS ORDERED: DEXTROSE 5%-1/3 NS - 500 ML IV SCH (15:15)
[2017-01-31] MEDS ORDERED: OXYCODONE/APAP 5/325MG COMBO TABLET PO PRN ×2 (15:17→15:18)
[2017-01-31] MEDS ORDERED: ACETAMINOPHEN 500 MG TABLET (FP) PO PRN (15:17)
[2017-01-31] MEDS ORDERED: ACETAMINOPHEN 325 MG TABLET (FP) PO PRN (15:26)
[2017-01-31] MEDS: HYDROmorphone HCL CARPU-JECT 1 MG/1 ML DISP.SYRIN IVPUSH PRN ×4 (15:45→16:40)
[2017-01-31] MEDS ORDERED: HYDROmorphone HCL CARPU-JECT 2 MG/1 ML DISP.SYRIN ONE ×2 (15:45→16:24)
--- NOTE | 2017-01-31 16:16 | OP ---
DATE OF OPERATION: 01/31/2017 PREOPERATIVE DIAGNOSIS: Acute appendicitis with localized peritonitis. POSTOPERATIVE DIAGNOSIS: Acute appendicitis. OPERATIVE PROCEDURE: Laparoscopic appendectomy. SURGEON: Lavonne Carrizales MD ANESTHESIA: General anesthesia. OPERATIVE DESCRIPTION: This 21-year-old man was admitted with right lower quadrant abdominal pain for 3 days. The patient had been to the emergency room earlier and was discharged home with severe pain with associated vomiting. The pain localized to the right lower quadrant and he is tender with guarding in the right lower quadrant. CAT scan suggested acute appendicitis. The patient is also a diabetic on insulin. He has been on antibiotics on the floor. Consent was obtained for laparoscopic appendectomy possible open. Risks, benefits and complications were discussed and explained to him and his sister. The patient was then brought to the operating room and general anesthesia was administered. The abdomen was painted and draped. A Ray catheter was inserted into the bladder which was removed right after surgery. Timeout was called. An incision was made in the infraumbilical portion of the umbilicus. The incision was carried down through the skin and subcutaneous tissue. The linea alba was then incised vertically in the midline. The peritoneum was incised and a 10-12 mm laparoscopic trocar of the Ilda type was abdominal cavity under direct visualization. Two stay sutures of 2-0 Vicryl were obtained to hold the trocar in place. The abdomen was inflated with carbon dioxide and 6 L per minute with maximum abdominal pressure of 15 mmHg. Under direct visualization with a 30-degree 5-mm camerae another 5-mm trocar was inserted in the midline in the suprapubic area after making an incision on the skin. This was noted entering the abdominal cavity under direct vision with the camera. A 3rd trocar another 5-mm was inserted in the right upper quadrant of the abdomen again, after making an incision on skin. This was noted entering under direct vision of the camera. The camera was then switched to suprapubic port. The appendix was visualized. It was very inflamed, very distended x3 with some purulent exudate on the surface. The mesoappendix was then grasped with the grasper through the right upper quadrant 5-mm grasper. The appendix was then pulled anteriorly and cephalad exposing the mesoappendix. The mesoappendix was then divided using the Harmonic scalpel through the umbilical port. This was carried all the way down to the base of the appendix. Once the base of the appendix was visualized an EndoGIA was introduced through the umbilical port. This was fired across the base of the appendix. The staple line was complete. The EndoGIA was removed and an EndoCatch was then introduced through the umbilical port. The appendix was placed on the EndoCatch and retrieved from the abdominal cavity. The appendix was very inflamed. Swab was obtained for culture and sent for examination. The rest of the abdominal cavity was normal. There was no bleeding from the operative site. There was no purulent exudate anywhere else. The terminal ileum was normal. There was no pus in the abdominal cavity. The instruments were then withdrawn under direct vision. The linea alba in the midline was approximated with interrupted and [id number] 2-0 Vicryl sutures. Marcaine 0.5% was infiltrated into the wound. The skin was approximated with buried interrupted 4-0 Monocryl sutures. Sponge count and instrument count was correct. Dermabond was applied to the skin edges. Estimated blood loss was 5 mL. The patient tolerated the procedure well and was extubated and returned to the Recovery Room in satisfactory and stable condition. Babs [id number]
[2017-01-31] MEDS ORDERED: CEFTRIAXONE 50 ML IVPB ONE (16:33)
--- NOTE | 2017-01-31 16:35 | PN ---
Teaching Attending Note Name of Resident: Geovanna Wells ATTENDING PHYSICIAN STATEMENT I saw and evaluated the patient. I reviewed the resident's note and discussed the case with the resident. I agree with the resident's findings and plan as documented. SUBJECTIVE:c/o RLQ pain with no relief to morphine. assoc fevers and chills. Denies CP, SOB,N/V/C/D OBJECTIVE: Last Vital Signs Temp Pulse Resp BP Pulse Ox 99.0 F 92 H 20 113/60 100 01/31/17 14:00 01/31/17 14:00 01/31/17 14:01/31/17 14:00 01/31/17 11:01 General in mild distress CV S1 S2 tachycardic Lungs CTA B/L no wheezing/rales/rhonchi Abdomen soft +RLQ tenderness +mcburney point ASSESSMENT AND PLAN: 21 yo M with PMH DM presented to the ER with RLQ pain and found to have acute appendicitis 1. Severe sepsis due to Acute Appendicitis-Tm 104.3. lactic acidosis resolved. NPO for OR today. cont IVF, ceftriaxone and Flagyl day 1. will switch to morphine to dilaudid. surgery consulted. pain and nausea control. f/u Cx. 2. DM-cont D5NS. iss, bgm. hold levemir until tolerating diet. 3. DVT ppx- start hep after surgery.
--- NOTE | 2017-01-31 16:37 | PN ---
Progress Note (short form) - Note Progress Note: ID consult dictated acute appendicitis gram negative bacteremia diabetes since age 16 s/p lap appy today- no perforation suspect enteric organism secondary to the appendicitis continue rocephin/flagyl continue ivf no history of resistant organisms, never hospitalized no recent antibiotics hemodynamically stable Problem List - Problems (1) Gram-negative bacteremia Code(s): R78.81 - BACTEREMIA (2) Acute appendicitis Code(s): K35.80 - UNSPECIFIED ACUTE APPENDICITIS Qualifiers: Acute appendicitis type: with localized peritonitis Qualified Code(s ): K35.3 - Acute appendicitis with localized peritonitis (3) Diabetes 1.5, managed as type 1 Code(s): E10.9 - TYPE 1 DIABETES MELLITUS WITHOUT COMPLICATIONS
[2017-01-31] MEDS: METRONIDAZOLE 500 MG PREMIXED 100 ML IVPB SCH (18:07)
--- NOTE | 2017-01-31 19:18 | CONS ---
DATE OF CONSULTATION: DATE OF DICTATION: 01/31/2017 REQUESTING LIBERTARIAN: Hospitalist Service. CONSULTING PHYSICIAN: Sonia Ramirez M.D. HISTORY OF PRESENT ILLNESS: This is a 21-year-old man with a past medical history of diabetes since age 16. He originally presented to the emergency room on the with abdominal pain. He was discharged home. He returned on midnight on the same night with complaints of fever and low back pain. He had had vomiting before since after he went home he continued to have the fever, and he was feeling cold and came to the emergency room. He had a temperature of 104.3 in the ER, he had right lower quadrant tenderness, and he was sent for a CAT scan of his abdomen and pelvis which was notable for acute appendicitis without abscess formation. He had cultures drawn. He was given Levaquin and Flagyl as well as a dose of Rocephin. He was taken to the operating room by Dr. Carrizales this afternoon, and he underwent a laparoscopic appendectomy, had acute appendicitis with purulent exudate but no perforation. He is now doing well in the recovery room. He is resting comfortably and extubated. I am asked to see him for antibiotic recommendations. His blood cultures are growing gram negative rods. He is resting quite comfortably, reports his pain is much improved. He reports throat discomfort since the surgery. The history was obtained both from the patient and confirmed with the sister, who speaks [place] better than the patient. He reports his abdominal pain has improved, it is minimal now. He reports his vomiting has stopped. He has had vomiting at home. He has no respiratory symptoms. There is no history of any travel. He has never been hospitalized before. He has not been on any antibiotics as an outpatient, and there is no history of any travel. DRUG ALLERGIES: He has no known drug allergies. MEDICATION: His only medication as an outpatient is insulin. FAMILY HISTORY: Notable for hypertension and diabetes. He has no known drug allergies. SOCIAL HISTORY: He is originally from the [place]. He has been here for 2 years. There is no history of any recent travel. He has no sick contacts. There is no history of any cigarette, alcohol, or drug use. PHYSICAL EXAMINATION: General: He is awake and alert. His temperature is 99. T-max was 104.3 when he presented to the emergency room. His blood pressure is 113/60, pulse of 92, respiratory rate 20, saturating 100%. HEENT: Normocephalic. Eyes are anicteric. Neck: Supple. Lungs: Clear to auscultation. Heart: Regular rate and rhythm. Abdomen: Flat. There is no distention. He has diminished bowel sounds. Extremities: Without edema. Laparoscopic scars are clean and without erythema. His white count was 2.3 on admission, repeat was 5. Hemoglobin is 14.8, platelets are 121. His BUN and creatinine were 9 and 1.0, lactic acid was 2.3 on admission and was 1.3 on repeat. Urinalysis has 3+ glucose, otherwise negative. His blood cultures have gram negative rods, and culture from surgery is pending. IMPRESSION: In summary, this is a 21-year-old man with acute appendicitis, gram-negative bacteremia that I suspect enteric organisms secondary to the appendicitis. A history of diabetes since age 16. I would continue Rocephin and Flagyl. Continue intravenous fluids. He has no history of resistant organisms. He has never been hospitalized and has not had any recent antibiotics. This was all confirmed with his sister. He is hemodynamically stable as well. Further recommendations to follow based on his clinical course. SONIA RAMIREZ M.D. [id number]
[2017-01-31] MEDS: SODIUM CHLORIDE 1,000 ML IV SCH (21:54)
[2017-02-01] MEDS: oxyCODONE HCL 5 MG TABLET PO PRN ×3 (00:15→20:17)
[2017-02-01] MEDS ORDERED: PT OWN MED DRAWER 7, Y5N ONE (01:10)
[2017-02-01] MEDS: METRONIDAZOLE 500 MG PREMIXED 100 ML IVPB SCH ×3 (01:37→17:38)
[2017-02-01] MEDS: INSULIN SLIDING SCALE (NOVOLOG) 1 VIAL SQ SCH ×5 (02:26→21:33)
[2017-02-01 07:51] LABS: ANION GAP 9 (8-16); CO2 25 mmol/L (21-32); CREATININE 0.9 mg/dL (0.7-1.3); GLUCOSE,RANDOM 166 mg/dL (74-106); MAGNESIUM 1.9 mg/dL (1.8-2.4); MCH 29.7 pg (25.7-33.7); MCHC 34.2 g/dl (32.0-35.9); MEAN CELL VOLUME 86.8 fl (80-96); MEAN PLT VOLUME 8.9 fl (7.5-11.1); PHOSPHOROUS 2.4 mg/dL (2.5-4.9); PLATELET COUNT 109 K/MM3 (134-434); RDW 12.7 % (11.9-15.9); WHITE BLOOD COUNT 7.3 K/mm3 (4.0-10.0)
[2017-02-01] MEDS: ACETAMINOPHEN 500 MG TABLET (FP) PO PRN ×2 (09:36→17:38)
[2017-02-01] MEDS: SODIUM CHLORIDE 1,000 ML IV SCH ×3 (09:37→23:12)
[2017-02-01] MEDS: cefTRIAXone 2 GM/100 ML BAG (PRE-DOCKED) IVPB SCH (09:37)
[2017-02-01] MEDS ORDERED: cefTRIAXone 1 GM/50 ML BAG (PRE-DOCKED) IVPB SCH (10:00)
--- NOTE | 2017-02-01 10:18 | PN ---
Progress Note (short form) - Note Progress Note: feels well Vital Signs Period Temp Pulse Resp BP Sys/Newman Pulse Ox Last 24 Hr 98.9 F-102.3 F 75-96 18-20 107-139/52-87 100-100 cor-rrr lungs clear abd soft,nt ext no edema CBC, BMP 02/01/17 06:20 02/01/17 06:20 Microbiology 01/31/17 00:30 Blood - Peripheral Venous Blood Culture - Preliminary Lactose Fermenting Neg Bacilli 01/31/17 00:25 Blood - Peripheral Venous Blood Culture - Preliminary Lactose Fermenting Neg Bacilli a/p acute appendicitis gram negative bacteremia diabetes since age 16 s/p lap appy yesterday- no perforation suspect enteric organism secondary to the appendicitis continue rocephin/flagyl f/u cultures clinically improved Problem List - Problems (1) Gram-negative bacteremia Code(s): R78.81 - BACTEREMIA (2) Acute appendicitis Code(s): K35.80 - UNSPECIFIED ACUTE APPENDICITIS Qualifiers: Acute appendicitis type: with localized peritonitis Qualified Code(s ): K35.3 - Acute appendicitis with localized peritonitis (3) Diabetes 1.5, managed as type 1 Code(s): E10.9 - TYPE 1 DIABETES MELLITUS WITHOUT COMPLICATIONS
--- NOTE | 2017-02-01 10:46 | PN ---
Progress Note (short form) - Note Progress Note: Anesthesia POD#1 S/P Appendectomy laparoscopy under GA VSS, Pain is under control. No N/V.Getting antibiotics. No complication to anesthesia seen. Tiara Waggoner MD.
[2017-02-01] MEDS ORDERED: INSULIN (NOVOLOG) ASPART 100 UNITS/ML 10ML VIAL ONE (11:04)
--- NOTE | 2017-02-01 12:10 | PN ---
Teaching Attending Note Name of Resident: Geovanna Wells ATTENDING PHYSICIAN STATEMENT I saw and evaluated the patient. I reviewed the resident's note and discussed the case with the resident. I agree with the resident's findings and plan as documented. SUBJECTIVE: OBJECTIVE: Last Vital Signs Temp Pulse Resp BP Pulse Ox 99 F 75 20 112/62 100 02/01/17 06:40 02/01/17 06:40 02/01/17 06:40 02/01/17 06:40 01/31/17 21:00 General in mild distress CV S1 S2 tachycardic Lungs CTA B/L no wheezing/rales/rhonchi Abdomen soft +RLQ tenderness +mcburney point ASSESSMENT AND PLAN: 21 yo M with PMH DM presented to the ER with RLQ pain and found to have acute appendicitis 1. Severe sepsis due to Acute Appendicitis and GNR bacteremia-Tm 102.3. s/p laprascopic appendectomy, no complications. clinically improved. advance to regular diet. repeat BCx in the AM. cont ceftriazone/flagyl day 2. ID and surgery on board. pain and nausea control. f/u Cx. 2. DM-d/c iVF once tolerating diet. iss, bgm. will restart levemir once tolerating diet. 3. Hypophsophatemia- neutraphos 4. DVT ppx- start lovenox
[2017-02-01] MEDS ORDERED: NAPH,MB-DB/K PH,MBDB POWDER PACKET PO ONE ×2 (12:30→15:00)
--- NOTE | 2017-02-01 18:10 | PN ---
Progress Note, Physician - Current Medication List Current Medications: Active Medications Acetaminophen (Tylenol -) 325 mg PO Q6H PRN PRN Reason: PAIN SCALE 1-5 Last Admin: 02/01/17 00:19 Dose: 325 mg Acetaminophen (Tylenol -) 500 mg PO Q6H PRN PRN Reason: FEVER OR PAIN Last Admin: 02/01/17 17:38 Dose: 500 mg Ceftriaxone Sodium (Rocephin 2gm Ivpb (Pre-Docked)) 2 gm IVPB DAILY RADHA PRN Reason: Protocol Last Admin: 02/01/17 09:37 Dose: 2 gm Enoxaparin Sodium (Lovenox -) 40 mg SQ DAILY [facility] Metronidazole (Flagyl 500mg Premixed Ivpb -) 100 mls @ 100 mls/hr IVPB Q8H-IV RADHA Last Admin: 02/01/17 17:38 Dose: 100 mls/hr Sodium Chloride (Normal Saline -) 1,000 mls @ 100 mls/hr IV ASDIR [facility] Last Admin: 02/01/17 15:01 Dose: 100 mls/hr Insulin Aspart (Novolog Vial Sliding Scale -) 1 vial SQ ACHS RADHA PRN Reason: Protocol Last Admin: 02/01/17 17:45 Dose: 8 units Ondansetron HCl (Zofran Injection) 4 mg IVPUSH Q6H PRN PRN Reason: NAUSEA Oxycodone HCl (Roxicodone -) 5 mg PO Q6H PRN PRN Reason: FOR PAIN SCALE 1-5 Last Admin: 02/01/17 06:27 Dose: 5 mg - Objective Vital Signs: Vital Signs Temperature 98.6 F 02/01/17 15:38 Pulse Rate 78 02/01/17 15:38 Respiratory Rate 16 02/01/17 15:38 Blood Pressure 120/67 02/01/17 15:38 O2 Sat by Pulse Oximetry (%) 100 02/01/17 09:00 Labs: CBC, BMP 02/01/17 06:20 02/01/17 06:20 INR, PTT INR 1.42 (0.82-1.09) H 01/31/17 06:00 Problem List - Problems (1) Abdominal pain Code(s): R10.9 - UNSPECIFIED ABDOMINAL PAIN Qualifiers: Abdominal location: right lower quadrant Qualified Code(s): R10.31 - Right lower quadrant pain (2) Abdominal pain, right lower quadrant Code(s): R10.31 - RIGHT LOWER QUADRANT PAIN (3) Acute appendicitis Code(s): K35.80 - UNSPECIFIED ACUTE APPENDICITIS Qualifiers: Acute appendicitis type: with localized peritonitis Qualified Code(s ): K35.3 - Acute appendicitis with localized peritonitis (4) Diabetes 1.5, managed as type 1 Code(s): E10.9 - TYPE 1 DIABETES MELLITUS WITHOUT COMPLICATIONS Assessment/Plan Surgery: Wound is clean, abdomen is soft , not tender, tolerating diet. D/C IV, treatment of bacteremia, source removed.
--- NOTE | 2017-02-01 18:25 | PN ---
Physical Exam: SUBJECTIVE: Patient seen and examined by me at bedside. Overnight events noted for fevers Tmax >102 and was given Tylenol IV. Patient reports abdominal pain and is unable to tolerate PO. Otherwise, patient denies chest pain, palpitations, shortness of breath. OBJECTIVE: Vital Signs Period Temp Pulse Resp BP Sys/Newman Pulse Ox Last 24 Hr 98.0 F-102.3 F 70-92 16-20 112-139/62-73 100-100 GENERAL: Awake, alert, fully oriented, ill appearing and anxious LUNGS: Breath sounds equal, clear to auscultation bilaterally. No wheezes, and no crackles. No accessory muscle use. HEART:Regular rate and rhythm, normal S1 and S2 without murmur, rub or gallop. ABDOMEN: Tenderness of RLQ and LLQ upon palpation. LOWER EXTREMITIES: No peripheral edema. NEUROLOGICAL: Normal speech, no focal neuro deficits Laboratory Results - last 24 hr 01/31/17 02/01/17 02/01/17 21:59 02:22 06:12 WBC RBC Hgb Hct MCV MCHC RDW Plt Count MPV Sodium Potassium Chloride Carbon Dioxide Anion Gap BUN Creatinine POC Glucometer 140 179 161 Random Glucose Calcium Phosphorus Magnesium 02/01/17 02/01/17 02/01/17 06:20 06:20 11:19 WBC 7.3 D RBC 4.93 Hgb 14.7 Hct 42.8 MCV 86.8 MCHC 34.2 RDW 12.7 Plt Count 109 L MPV 8.9 Sodium 137 Potassium 4.1 Chloride 103 Carbon Dioxide 25 Anion Gap 9 BUN 10 Creatinine 0.9 POC Glucometer 195 Random Glucose 166 H D Calcium 8.0 L Phosphorus 2.4 L D Magnesium 1.9 02/01/17 17:40 WBC RBC Hgb Hct MCV MCHC RDW Plt Count MPV Sodium Potassium Chloride Carbon Dioxide Anion Gap BUN Creatinine POC Glucometer 317 Random Glucose Calcium Phosphorus Magnesium Active Medications Generic Name Dose Route Start Last Admin Trade Name Freq PRN Reason Stop Dose Admin Acetaminophen 325 mg 01/31/17 15:26 02/01/17 00:19 Tylenol - PO 325 mg Q6H PRN Administration PAIN SCALE 1-5 Acetaminophen 500 mg 01/31/17 15:30 02/01/17 17:38 Tylenol - PO 500 mg Q6H PRN Administration FEVER OR PAIN Ceftriaxone Sodium 2 gm 02/01/17 10:00 02/01/17 09:37 Rocephin 2gm Ivpb (Pre-Docked) IVPB 2 gm DAILY RADHA Administration Protocol Enoxaparin Sodium 40 mg 02/02/17 10:00 Lovenox - SQ DAILY RADHA Metronidazole 100 mls @ 100 mls/hr 01/31/17 18:00 02/01/17 17:38 Flagyl 500mg Premixed Ivpb - IVPB 100 mls/hr Q8H-IV RADHA Administration Sodium Chloride 1,000 mls @ 100 mls/hr 02/01/17 13:45 02/01/17 15:01 Normal Saline - IV 100 mls/hr ASDIR RADHA Administration Insulin Aspart 1 vial 02/01/17 11:00 02/01/17 17:45 Novolog Vial Sliding Scale - SQ 8 units ACHS RADHA Administration Protocol Ondansetron HCl 4 mg 01/31/17 15:49 Zofran Injection IVPUSH Q6H PRN NAUSEA Oxycodone HCl 5 mg 01/31/17 15:27 02/01/17 06:27 Roxicodone - PO 5 mg Q6H PRN Administration FOR PAIN SCALE 1-[address] Abdo/Pelvis: Lung bases are clear. The visualized cardiac chambers are normal size and configuration. Normal liver, gallbladder, pancreas, spleen, adrenal glands and kidneys. The stomach and abdominal small and large bowel are normal. There is no aortic aneurysm. There is no significant retroperitoneal lymphadenopathy. The pelvic small and large bowel are normal. [place] is dilated and mildly inflamed, consistent with acute appendicitis. There is no abscess or free air. The urinary bladder and prostate gland are normal. No pelvic free fluid is identified. There is no significant pelvic lymphadenopathy. IMPRESSION: Acute appendicitis without abscess or free air. Chest X-Ray: No acute pathology EKG: Sinus tachy @ 111 bpm ASSESSMENT/PLAN: Patient is a 21 year old male with a PMHx of DMI who presented for fevers, chills, nausea, abdominal pain and was found to be Septic. CT abdomen revealed Appendicitis and patient was admitted to med/surg for further monitoring and management. Sepsis Secondary to Bacteremia from Acute Appendicitis-Improving -POD #1 S/P laprascopic appendectomy -Continue Normal Saline @100mls/hr -Continue with Rocephin 1gm IVPB daily and Flagyl 500mg IV q8h day #2 -Dilaudid 1gm Q4H for pain control -IV Tylenol 1gm Q4H for fevers -Cultures growing lactose fermenting negative bacilli -Will wait for culture sensitivities IDDM I-Controlled -BGM -ISS -4 units of Novolog given F/E/N -IV NS @100mls/hr -Electrolytes wnl -Diabetic diet Prophylaxis -SCD's for DVT Disposition -Full code -Cultures pending Visit type - Emergency Visit Emergency Visit: Yes ED Registration Date: 01/31/17 Care time: The patient presented to the Emergency Department on the above date and was hospitalized for further evaluation of their emergent condition. - New Patient This patient is new to me today: No - Critical Care Critical Care patient: No
[2017-02-02] MEDS: METRONIDAZOLE 500 MG PREMIXED 100 ML IVPB SCH ×3 (01:34→17:24)
[2017-02-02] MEDS: ACETAMINOPHEN 500 MG TABLET (FP) PO PRN (02:49)
[2017-02-02] MEDS: INSULIN SLIDING SCALE (NOVOLOG) 1 VIAL SQ SCH ×4 (06:04→22:08)
[2017-02-02 08:26] LABS: MAGNESIUM 1.9 mg/dL (1.8-2.4); PHOSPHOROUS 1.6 mg/dL (2.5-4.9)
[2017-02-02] MEDS ORDERED: NAPH,MB-DB/K PH,MBDB POWDER PACKET PO ONE (08:43)
--- NOTE | 2017-02-02 08:50 | PN ---
Progress Note (short form) - Note Progress Note: c/o nausea. unable to eat because feels he may vomit if he does so. abdominal pain improved. denies BM or flatus. denies Cp, SOB,fever, chills Current Medications Generic Name Dose Route Start Last Admin Trade Name Freq PRN Reason Stop Dose Admin Acetaminophen 325 mg 01/31/17 15:26 02/01/17 00:19 Tylenol - PO 325 mg Q6H PRN Administration PAIN SCALE 1-5 Acetaminophen 500 mg 01/31/17 15:30 02/02/17 02:49 Tylenol - PO 500 mg Q6H PRN Administration FEVER OR PAIN Ceftriaxone Sodium 2 gm 02/01/17 10:00 02/01/17 09:37 Rocephin 2gm Ivpb (Pre-Docked) IVPB 2 gm DAILY RADHA Administration Protocol Enoxaparin Sodium 40 mg 02/02/17 10:00 Lovenox - SQ DAILY RADHA Metronidazole 100 mls @ 100 mls/hr 01/31/17 18:00 02/02/17 01:34 Flagyl 500mg Premixed Ivpb - IVPB 100 mls/hr Q8H-IV RADHA Administration Sodium Chloride 1,000 mls @ 100 mls/hr 02/01/17 13:45 02/01/17 23:12 Normal Saline - IV 100 mls/hr ASDIR RADHA Administration Insulin Aspart 1 vial 02/01/17 11:00 02/02/17 06:04 Novolog Vial Sliding Scale - SQ 4 units ACHS RADHA Administration Protocol Ondansetron HCl 4 mg 01/31/17 15:49 Zofran Injection IVPUSH Q6H PRN NAUSEA Oxycodone HCl 5 mg 01/31/17 15:27 02/01/17 20:17 Roxicodone - PO 5 mg Q6H PRN Administration FOR PAIN SCALE 1-5 Potassium Phos/Sodium Phos 2 packet 02/02/17 08:43 Phos-Nak Packet - PO 02/02/17 08:44 ONCE ONE Last Vital Signs Temp Pulse Resp BP Pulse Ox 99.6 F 70 18 120/62 100 02/02/17 06:25 02/02/17 06:25 02/02/17 06:25 02/02/17 06:25 02/01/17 21:00 General NAD CV S1 S2 RRR no murmur/rub/gallop Lungs CTA B/L no wheezing/rales/rhonchi Abdomen soft mildly distended. tender over surgical incisions. no rebound or guarding normoactive BS CBCD WBC 7.3 K/mm3 (4.0-10.0) D 02/01/17 06:20 RBC 4.93 M/mm3 (4.00-5.60) 02/01/17 06:20 Hgb 14.7 GM/dL (11.7-16.9) 02/01/17 06:20 Hct 42.8 % (35.4-49) 02/01/17 06:20 MCV 86.8 fl (80-96) 02/01/17 06:20 MCHC 34.2 g/dl (32.0-35.9) 02/01/17 06:20 RDW 12.7 % (11.9-15.9) 02/01/17 06:20 Plt Count 109 K/MM3 (134-434) L 02/01/17 06:20 MPV 8.9 fl (7.5-11.1) 02/01/17 06:20 CMP Sodium 137 mmol/L (136-145) 02/01/17 06:20 Potassium 4.1 mmol/L (3.5-5.1) 02/01/17 06:20 Chloride 103 mmol/L (98-107) 02/01/17 06:20 Carbon Dioxide 25 mmol/L (21-32) 02/01/17 06:20 Anion Gap 9 (8-16) 02/01/17 06:20 BUN 10 mg/dL (7-18) 02/01/17 06:20 Creatinine 0.9 mg/dL (0.7-1.3) 02/01/17 06:20 Creat Clearance w eGFR > 60 (>60) 01/31/17 06:00 Calcium 8.0 mg/dL (8.5-10.1) L 02/01/17 06:20 Total Bilirubin 0.6 mg/dL (0.2-1.0) D 01/31/17 06:00 AST 73 U/L (15-37) H D 01/31/17 06:00 ALT 45 U/L (12-78) D 01/31/17 06:00 Alkaline Phosphatase 72 U/L (45-117) D 01/31/17 06:00 Total Protein 5.6 g/dl (6.4-8.2) L 01/31/17 06:00 Albumin 3.1 g/dl (3.4-5.0) L 01/31/17 06:00 Microbiology 01/31/17 14:30 Gram Stain - Final Tissue-Other 01/31/17 01:43 Urine Culture - Final Urine - Urine Clean Catch NO GROWTH OBTAINED 01/31/17 00:30 Blood Culture - Preliminary Blood - Peripheral Venous Lactose Fermenting Neg Bacilli 01/31/17 00:25 Blood Culture - Preliminary Blood - Peripheral Venous Lactose Fermenting Neg Bacilli ASSESSMENT AND PLAN: 21 yo M with PMH DM presented to the ER with RLQ pain and found to have acute appendicitis 1. Severe sepsis due to Acute Appendicitis and GNR bacteremia-afebrile. remains nauseated. s/p laprascopic appendectomy 01/31. will start on diabetic liquid diet to see if improved. encouraged need to eat. no BM likely due to not eating. repeat Bcx today. on Ceftriaxone/flagyl. ID and surgery on board. pain and nausea control. f/u Cx. 2. DM-maintain IVF until tolerating diet. will give lantus 5units this AM. monitor bgm closely. cont iss. tolerating diet. iss, bgm. will restart levemir once tolerating diet. 3. Hypophsophatemia- neutraphos 4. DVT ppx- lovenox Visit type - Emergency Visit Emergency Visit: Yes ED Registration Date: 01/31/17 Care time: The patient presented to the Emergency Department on the above date and was hospitalized for further evaluation of their emergent condition. - New Patient This patient is new to me today: No - Critical Care Critical Care patient: No - Discharge Referral Referred to [facility] Med P.C.: No
[2017-02-02] MEDS ORDERED: INSULIN DETEMIR 100 UNITS/ML MDV SQ ONE (08:55)
[2017-02-02] MEDS: ENOXAPARIN NA (PORCINE) 40 MG/0.4 ML DISP.SYRIN SQ SCH (09:36)
[2017-02-02] MEDS: cefTRIAXone 2 GM/100 ML BAG (PRE-DOCKED) IVPB SCH (11:05)
--- NOTE | 2017-02-02 11:32 | PN ---
Progress Note, Physician Chief Complaint: ID Ceftriaxone and metronidazole - Current Medication List Current Medications: Active Medications Acetaminophen (Tylenol -) 325 mg PO Q6H PRN PRN Reason: PAIN SCALE 1-5 Last Admin: 02/01/17 00:19 Dose: 325 mg Acetaminophen (Tylenol -) 500 mg PO Q6H PRN PRN Reason: FEVER OR PAIN Last Admin: 02/02/17 02:49 Dose: 500 mg Ceftriaxone Sodium (Rocephin 2gm Ivpb (Pre-Docked)) 2 gm IVPB DAILY RADHA PRN Reason: Protocol Last Admin: 02/02/17 11:05 Dose: 2 gm Enoxaparin Sodium (Lovenox -) 40 mg SQ DAILY [facility] Last Admin: 02/02/17 09:36 Dose: 40 mg Metronidazole (Flagyl 500mg Premixed Ivpb -) 100 mls @ 100 mls/hr IVPB Q8H-IV RADHA Last Admin: 02/02/17 09:31 Dose: 100 mls/hr Sodium Chloride (Normal Saline -) 1,000 mls @ 100 mls/hr IV ASDIR [facility] Last Admin: 02/01/17 23:12 Dose: 100 mls/hr Insulin Aspart (Novolog Vial Sliding Scale -) 1 vial SQ ACHS RADHA PRN Reason: Protocol Last Admin: 02/02/17 06:04 Dose: 4 units Insulin Detemir (Levemir Vial) 5 units SQ AM RADHA Ondansetron HCl (Zofran Injection) 4 mg IVPUSH Q6H PRN PRN Reason: NAUSEA Oxycodone HCl (Roxicodone -) 5 mg PO Q6H PRN PRN Reason: FOR PAIN SCALE 1-5 Last Admin: 02/01/17 20:17 Dose: 5 mg - Objective Vital Signs: Vital Signs Temperature 99.6 F 02/02/17 06:25 Pulse Rate 70 02/02/17 06:25 Respiratory Rate 18 02/02/17 06:25 Blood Pressure 120/62 02/02/17 06:25 O2 Sat by Pulse Oximetry (%) 100 02/01/17 21:00 Constitutional: Yes: Well Nourished, No Distress Gastrointestinal: Yes: Soft, Other (post op) ...Rectal Exam: Yes: Other Labs: CBC, BMP 02/01/17 06:20 02/01/17 06:20 INR, PTT INR 1.42 (0.82-1.09) H 01/31/17 06:00 Assessment/Plan Microbiology 01/31/17 14:30 Tissue-Other Gram Stain - Final 01/31/17 14:30 Tissue-Other Tissue Culture - Preliminary Lactose Fermenting Neg Bacilli 01/31/17 00:30 Blood - Peripheral Venous Blood Culture - Preliminary Lactose Fermenting Neg Bacilli 01/31/17 00:25 Blood - Peripheral Venous Blood Culture - Preliminary Lactose Fermenting Neg Bacilli Laboratory Tests 01/31/17 02/01/17 02/01/17 06:00 06:20 06:20 WBC 7.3 D RBC 4.93 Plt Count 109 L INR 1.42 H BUN 10 Creatinine 0.9 Assessment Appendicitis bacteremia GNB Plan Continue antibiotics Francesco NEVES
--- NOTE | 2017-02-02 11:37 | PN ---
Progress Note, Physician - Current Medication List Current Medications: Active Medications Acetaminophen (Tylenol -) 325 mg PO Q6H PRN PRN Reason: PAIN SCALE 1-5 Last Admin: 02/01/17 00:19 Dose: 325 mg Acetaminophen (Tylenol -) 500 mg PO Q6H PRN PRN Reason: FEVER OR PAIN Last Admin: 02/02/17 02:49 Dose: 500 mg Ceftriaxone Sodium (Rocephin 2gm Ivpb (Pre-Docked)) 2 gm IVPB DAILY RADHA PRN Reason: Protocol Last Admin: 02/02/17 11:05 Dose: 2 gm Enoxaparin Sodium (Lovenox -) 40 mg SQ DAILY [facility] Last Admin: 02/02/17 09:36 Dose: 40 mg Metronidazole (Flagyl 500mg Premixed Ivpb -) 100 mls @ 100 mls/hr IVPB Q8H-IV RADHA Last Admin: 02/02/17 09:31 Dose: 100 mls/hr Sodium Chloride (Normal Saline -) 1,000 mls @ 100 mls/hr IV ASDIR [facility] Last Admin: 02/01/17 23:12 Dose: 100 mls/hr Insulin Aspart (Novolog Vial Sliding Scale -) 1 vial SQ ACHS RADHA PRN Reason: Protocol Last Admin: 02/02/17 06:04 Dose: 4 units Insulin Detemir (Levemir Vial) 5 units SQ AM RADHA Ondansetron HCl (Zofran Injection) 4 mg IVPUSH Q6H PRN PRN Reason: NAUSEA Oxycodone HCl (Roxicodone -) 5 mg PO Q6H PRN PRN Reason: FOR PAIN SCALE 1-5 Last Admin: 02/01/17 20:17 Dose: 5 mg - Objective Vital Signs: Vital Signs Temperature 99.6 F 02/02/17 06:25 Pulse Rate 70 02/02/17 06:25 Respiratory Rate 18 02/02/17 06:25 Blood Pressure 120/62 02/02/17 06:25 O2 Sat by Pulse Oximetry (%) 100 02/01/17 21:00 Labs: CBC, BMP 02/01/17 06:20 02/01/17 06:20 INR, PTT INR 1.42 (0.82-1.09) H 01/31/17 06:00 Problem List - Problems (1) Abdominal pain Code(s): R10.9 - UNSPECIFIED ABDOMINAL PAIN Qualifiers: Abdominal location: right lower quadrant Qualified Code(s): R10.31 - Right lower quadrant pain (2) Abdominal pain, right lower quadrant Code(s): R10.31 - RIGHT LOWER QUADRANT PAIN (3) Acute appendicitis Code(s): K35.80 - UNSPECIFIED ACUTE APPENDICITIS Qualifiers: Acute appendicitis type: with localized peritonitis Qualified Code(s ): K35.3 - Acute appendicitis with localized peritonitis (4) Diabetes 1.5, managed as type 1 Code(s): E10.9 - TYPE 1 DIABETES MELLITUS WITHOUT COMPLICATIONS Assessment/Plan Teml 99.6. Cultures from the appendix and blood are identical. Gram negative , lactose fermenting bacilli. On antibiotics. Source of sepsis is removed. Feels nauseous, ? vomiting, ? secondary to flagyl? Abdomen is soft , not tender, Continue oral feeding, regular diet , restriction only for diabetes. May shower , activity at [place].
[2017-02-03] MEDS: METRONIDAZOLE 500 MG PREMIXED 100 ML IVPB SCH ×2 (01:49→09:46)
[2017-02-03] MEDS: INSULIN SLIDING SCALE (NOVOLOG) 1 VIAL SQ SCH (06:47)
[2017-02-03] MEDS ORDERED: INSULIN DETEMIR 100 UNITS/ML MDV SQ SCH (07:00)
[2017-02-03] MEDS ORDERED: INSULIN DETEMIR 100 UNITS/ML MDV SQ ONE (08:30)
[2017-02-03] MEDS: ENOXAPARIN NA (PORCINE) 40 MG/0.4 ML DISP.SYRIN SQ SCH (09:46)
--- NOTE | 2017-02-03 09:49 | DS ---
Physical Exam: SUBJECTIVE: Patient seen and examined this morning. No acute events overnight. Patient is s/p lap appendectomy done on 02/01/2017 and has regained his appetite. He does not have any pain near his incision site. Patient denies any nausea, vomiting, diarrhea. OBJECTIVE: Vital Signs Period Temp Pulse Resp BP Sys/Newman Pulse Ox Last 24 Hr 98.6 F-100 F 74-88 18-20 113-132/56-75 PHYSICAL EXAM GENERAL: The patient is awake, alert, and fully oriented, in no acute distress. Resting comfortably in bed. HEAD: Normal with no signs of trauma. EYES: PERRL, extraocular movements intact, sclera anicteric, conjunctiva clear. ENT: Ears normal, nares patent, oropharynx clear without exudates, moist mucous membranes. NECK: Trachea midline, full range of motion, supple. LUNGS: Breath sounds equal, clear to auscultation bilaterally, no wheezes, no crackles, no accessory muscle use. HEART: Regular rate and rhythm, S1, S2 without murmur, rub or gallop. ABDOMEN: Soft, nontender, nondistended, normoactive bowel sounds, no guarding, no rebound, no hepatosplenomegaly, no masses. Incision site from lap appendectomy (02/01) healing well, no tenderness elicited upon palpation. EXTREMITIES: 2+ pulses, warm, well-perfused, no edema. NEUROLOGICAL: Cranial nerves II through XII grossly intact. Normal speech, gait not observed. PSYCH: Normal mood, normal affect. SKIN: Warm, dry, normal turgor, no rashes or lesions noted. LABS Laboratory Results - last 24 hr 02/02/17 02/02/17 02/02/17 12:22 16:40 22:01 POC Glucometer 242 305 296 Hemoglobin A1c % Phosphorus 02/03/17 02/03/17 06:30 06:30 POC Glucometer Hemoglobin A1c % 10.8 H Phosphorus 2.7 D HOSPITAL COURSE: Date of Admission:01/31/17 Date of Discharge: 02/03/17 Admitting diagnosis: Sepsis due to acute appendicitis and bacteremia Pre-hospital course: Pt is a 21 year old M with PMH of diabetes, who presented to the ED with fever and SOB resulting from lower back pain. The night prior, the patient came to the ED for nausea and 5 episodes of vomiting, and was subsequently discharged after he was administered medication in the ED. After returning home, patient continued to have nausea without vomiting and subjective fevers. During this time, patient also complained of generalized weakness and palpitations. Pt denied any chest pain, cough, loss of consciousness, sick contacts, dysuria, diarrhea, blood in urine, or peripheral swelling on admission. ED course is significant for administration of metronidazole, levaquin, zofran, morphine, IV ofirmev, and the following testing modalities: CT abdomen and CXR. Subsequent hospital course: Patient was admitted to medicine floor and was diagnosed with acute appendicitis based on CT findings from 01/31/17. Patient subsequently underwent a laparoscopic appendectomy the following day on 02/01/2017. No complications evident during surgery and has not had any pain near his incision site. After surgery, patient was unable to tolerate PO diet due to nausea, but has improved and his diet has been advanced. Patient is receiving metronidazole 500mg for 4 days and will transition to Augmentin 875mg BID and Ceftriaxone 2 grams. During his hospital course, patient's blood glucose was also monitored due to his Diabetes. He will continue to monitor his sugars at home, and will continue to take Levemir 10 units. Minutes to complete discharge: 60 Discharge Summary Reason For Visit: APPENDICITIS Current Active Problems Abdominal pain, right lower quadrant (Acute) Acute appendicitis (Acute) Appendicitis (Acute) Diabetes 1.5, managed as type 1 (Acute) Gram-negative bacteremia (Acute) Condition: Improved - Instructions Diet, Activity, Other Instructions: Instructions You were treated for acute appendicitis. Continue to take your antibiotics until the course is completed, even if your symptoms resolve. Continue diabetic diet. Check your blood sugar every morning and before meals until you are able to eat a regular diet. Log your sugars and bring the levels to your next doctor' s appointment. Take Levemir 10 Units in the morning- this will likely need to be increased to your normal dose, but follow up with your primary care doctor before doing so. Follow-up with your primary care doctor this week. Also follow- up with your surgeon within 2 weeks, his contact information has been provided. Please return to the ER if your symptoms worsen. Referrals: Shamika Carrizales MD [Staff Physician] - Disposition: HOME - Home Medications Comprehensive Discharge Medication List: Ambulatory Orders Insulin Glargine,Hum.rec.anlog [Lantus (nf)] 25 units SQ DAILY 01/30/17 This patient is new to me today: Yes Date on this admission: 02/03/17 Emergency Visit: Yes ED Registration Date: 01/31/17 Care time: The patient presented to the Emergency Department on the above date and was hospitalized for further evaluation of their emergent condition. Critical Care patient: No - Discharge Referral Referred to [facility] Med P.C.: No
--- NOTE | 2017-02-03 10:01 | PN ---
Teaching Attending Note Name of Resident: Rita Watters ATTENDING PHYSICIAN STATEMENT I saw and evaluated the patient. I reviewed the resident's note and discussed the case with the resident. I agree with the resident's findings and plan as documented. SUBJECTIVE:asymptomatic. nausea and vomiting resolved. tolerating regular diet. BM this AM. denies Cp, SOB,fever, chills, N/V/C/D OBJECTIVE: Last Vital Signs Temp Pulse Resp BP Pulse Ox 98.6 F 84 20 113/56 100 02/03/17 06:49 02/03/17 06:49 02/03/17 06:49 02/03/17 06:49 02/01/17 21:00 General NAD Abdomen soft NT/ND normoactive BS. surgical incision intact no drainage ASSESSMENT AND PLAN: 21 yo M with PMH DM presented to the ER with RLQ pain and found to have acute appendicitis 1. Severe sepsis due to Acute Appendicitis and Klebsiella bacteremia-afebrile. nausea resolved. tolerating diet. BCx klebsiella lopez-sensitive. repeat Cx negative. spoke with ID who recommends transition to Augmentin for additional 3 days to complete total of 7 days of abx. 2. DM-tolerating diet. d/c IVF. A1c 10.8. will increase levemir 10 units this AM. instructed pt to monitor sugars closely. bring BGM log to PMD office. to slowly increase levemir as fs allow. goal <126. will need to see PMD this week. 3. Hypophsophatemia- resolved 4. DVT ppx- lovenox 5. d/c home on augmentin for 3 days.
[2017-02-03] MEDS: cefTRIAXone 2 GM/100 ML BAG (PRE-DOCKED) IVPB SCH (10:44)
[2017-02-03 10:56] VITALS: BP 120/67; PULSE 76; TEMP 99.3
--- NOTE | 2017-02-07 15:16 | PATH ---
Surgical Pathology Report Patient Name: BRODERICK MOON [facility]. Rec. #: [id number] /Age/Gender: 1995 (Age: 21) / M Account: [id number] Location: [facility] MED/SURG Taken: 01/31/2017 Received: 02/01/2017 Reported: 02/07/2017 Physicians: El Carrizales M.D. Specimen(s) Received APPENDIX Clinical History Appendicitis Final Diagnosis APPENDIX, APPENDECTOMY: ACUTE APPENDICITIS AND PERIAPPENDICITIS. Electronically Signed Porsha Regalado M.D. Gross Description Received in formalin, labeled "appendix," is a 6.5 cm. in length vermiform appendix with a stapled margin of resection and moderate attached fat. The serosa is hook-mejia with attached exudate. Sectioning reveals a focally dilated lumen containing pus. The wall of the appendix averages 0.2 cm. in thickness. Long Term Care Phlebotomist sections are submitted in one cassette. 02/01/2017 [facility]02/01/2017
== END 2017-02-03 11:46 | disposition home or self-care (01) | DRG 710 ==
LOC: JER 23:46 → JERBED 01-31 03:46 → UNDOADMIN 01-31 04:50 → JERBED 01-31 04:50 → J8W 01-31 06:57
PROVIDERS: ADMIT Internal Medicine; ATTEND Internal Medicine
PROC: 0DTJ4ZZ Resection of Appendix, Percutaneous Endoscopic Approach (ICD-10-PCS; principal; 2017-01-31 14:00)
DX: A41.9 Sepsis, unspecified organism (principal); K35.3 Acute appendicitis with localized peritonitis; R65.20 Severe sepsis without septic shock; E83.39 Other disorders of phosphorus metabolism; E10.9 Type 1 diabetes mellitus without complications; R10.31 Right lower quadrant pain
CPT/HCPCS: 36415; 71010-TC; 74177-TC; 80048; 80053; 81003; 82150; 82550; 82803; 83036; 83605; 83690; 83735; 84100; 84484; 85025; 85027; 85610; 85730; 86850; 86900; 86901; 87040; 87070; 87075; 87086; 87186; 87205; 88304-TC; 93005; 93010; 94760; 99284-25

== ENCOUNTER → 2017-11-16 | Emergency (ER) | payer OTHER ==
[~2017-11-16] MED LIST: ACETAMINOPHEN 1000 MG/100 ML VIAL (NON FORMULARY) IVPB ONE; ACETAMINOPHEN INJECTION 100 ML IVPB ONE; morphine CARPU-JECT 4 MG/1 ML DISP.SYRIN IVPUSH ONE; morphine SULFATE 4 MG/ML VIAL ONE
[2017-11-16 08:10] VITALS: BMI 22.0
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
[2017-11-16 09:42] LABS: BASO % 0.5 % (0-2.0); EOS % 0.1 % (0-4.5); HEMATOCRIT 50.4 % (35.4-49); HEMOGLOBIN 17.4 GM/dL (11.7-16.9); LYMPH % 12.9 % (8-40); MCH 29.3 pg (25.7-33.7); MCHC 34.6 g/dl (32.0-35.9); MEAN CELL VOLUME 84.7 fl (80-96); MEAN PLT VOLUME 8.6 fl (7.5-11.1); MONO % 6.1 % (3.8-10.2); NEUT % 80.4 % (42.8-82.8); PLATELET COUNT 256 K/MM3 (134-434); RBC 5.95 M/mm3 (4.00-5.60); RDW 12.5 % (11.9-15.9); WHITE BLOOD COUNT 12.6 K/mm3 (4.0-10.0)
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
[2017-11-16 10:00] LABS: INR 0.95 (0.82-1.09); PROTHROMBIN TIME (PATIENT) 10.7 SEC (9.98-11.88)
[2017-11-16 10:17] LABS: ALBUMIN 4.3 g/dl (3.4-5.0); ALK PHOS 86 U/L (45-117); ANION GAP 14 (8-16); BILIRUBIN,TOTAL 0.4 mg/dL (0.2-1.0); BLOOD UREA NITROGEN 16 mg/dL (7-18); CALCIUM 9.3 mg/dL (8.5-10.1); CHLORIDE 103 mmol/L (98-107); CO2 20 mmol/L (21-32); GLUCOSE,RANDOM 226 mg/dL (74-106); POTASSIUM 3.4 mmol/L (3.5-5.1); SGOT/AST 17 U/L (15-37); SGPT/ALT 18 U/L (12-78); SODIUM 137 mmol/L (136-145); TOT PROT 7.6 g/dl (6.4-8.2)
[2017-11-16 11:05] VITALS: BP 126/79; PULSE 99; TEMP 98.5
== END | disposition short-term general hospital (02) ==
LOC: JER 08:03
PROC: 3E033NZ Introduction of Analgesics, Hypnotics, Sedatives into Peripheral Vein, Percutaneous Approach (ICD-10-PCS; principal; 2017-11-16)
PROC: 3E033NZ Introduction of Analgesics, Hypnotics, Sedatives into Peripheral Vein, Percutaneous Approach (ICD-10-PCS; 2017-11-16)
DX: S02.69XA Fracture of mandible of other specified site, initial encounter for closed fracture (principal); S02.5XXA Fracture of tooth (traumatic), initial encounter for closed fracture; S61.012A Laceration without foreign body of left thumb without damage to nail, initial encounter; Y04.2XXA Assault by strike against or bumped into by another person, initial encounter; Y93.89 Activity, other specified; Y92.414 Local residential or business street as the place of occurrence of the external cause; Y99.8 Other external cause status; S00.03XA Contusion of scalp, initial encounter; E10.9 Type 1 diabetes mellitus without complications; Z79.4 Long term (current) use of insulin
CPT/HCPCS: 36415; 70450-TC; 70486-TC; 80053; 82962; 85025; 85610; 99285-25; J0131

== ENCOUNTER 2017-12-17 00:43 | Emergency (ER) | payer OTHER ==
[2017-12-17 01:34] VITALS: TEMP 98.4; BMI 23.3
--- NOTE | 2017-12-17 01:50 | PDOC ---
History of Present Illness - General Chief Complaint: Blood Sugar Problem Stated Complaint: BLOOD SUGAR PROBLEM Time Seen by Provider: 12/17/17 01:27 History Source: Patient - History of Present Illness Initial Comments: 12/17/17 04:09 22 year old male withhyperglycemia > 600 at home x 1 day. patient reports 1 episode of nausea and vomiting. patient reports feeling weak, generalized abdominal discomfort. denies fever/ chill, urinary symptoms. patient history of IDDM, T&A and appendectomy. 12/17/17 05:25 Past History - Past Medical History Allergies/Adverse Reactions: Allergies Allergy/AdvReac Type Severity Reaction Status Date / Time No Known Allergies Allergy Verified 12/17/17 01:34 Home Medications: Ambulatory Orders Insulin Glargine,Hum.rec.anlog [Lantus Solostar PEN (NF)] 25 unit SQ AM COPD: No Diabetes: Yes - Suicide/Smoking/Psychosocial Hx Smoking History: Never smoked Have you smoked in the past 12 months: No Information on smoking cessation initiated: No Hx Alcohol Use: No Drug/Substance Use Hx: No Hx Substance Use Treatment: No *Physical Exam - Vital Signs Last Vital Signs Temp Pulse Resp BP Pulse Ox 98.4 F 91 H 18 119/63 100 12/17/17 01:27 12/17/17 01:27 12/17/17 01:27 12/17/17 01:27 12/17/17 01:27 - Physical Exam General Appearance: Yes: Appropriately Dressed Respiratory/Chest: positive: Lungs Clear, Normal Breath Sounds Cardiovascular: positive: Regular Rhythm, Regular Rate Gastrointestinal/Abdominal: positive: Normal Bowel Sounds, Soft. negative: Tender Extremity: positive: Normal Capillary Refill, Normal Inspection, Normal Range of Motion Integumentary: positive: Normal Color Neurologic: positive: Fully Oriented, Alert, Normal Mood/Affect ED Treatment Course - LABORATORY CBC & Chemistry Diagram: 12/17/17 03:20 12/17/17 03:20 Medical Decision Making - Medical Decision Making 12/17/17 05:38 A: hyperglycemia P: cbc cmp acetonbe VBG, IVF inslin. 12/17/17 05:38 repeat blood sugar after snack : 300. will d/c home. patient reorts feeling better. 12/17/17 06:00 *DC/Admit/Observation/Transfer Diagnosis at time of Disposition: Hyperglycemia - Discharge Dispostion Disposition: HOME Condition at time of disposition: Stable - Referrals Referrals: Parveen Arzate MD [Staff Physician] - Call tomorrow - Patient Instructions Printed Discharge Instructions: DI for Hyperglycemia -- Adult Additional Instructions: drink plenty of fluids. follow up with an endocrinology. check your blood sugar before and after meals. - Post Discharge Activity
[2017-12-17] MEDS ORDERED: ONDANSETRON 4 MG/2 ML VIAL IVPUSH ONE (01:52)
[2017-12-17] MEDS ORDERED: SODIUM CHLORIDE 1,000 ML IV ONE (02:58)
[2017-12-17] MEDS ORDERED: ONDANSETRON 4 MG/2 ML VIAL ONE (03:05)
[2017-12-17 03:36] LABS: BASO % 0.5 % (0-2.0); EOS % 0.4 % (0-4.5); HEMATOCRIT 43.2 % (35.4-49); HEMOGLOBIN 14.6 GM/dL (11.7-16.9); LYMPH % 34.5 % (8-40); MCH 28.8 pg (25.7-33.7); MCHC 33.8 g/dl (32.0-35.9); MEAN CELL VOLUME 85.1 fl (80-96); MEAN PLT VOLUME 8.7 fl (7.5-11.1); MONO % 7.7 % (3.8-10.2); NEUT % 56.9 % (42.8-82.8); PLATELET COUNT 238 K/MM3 (134-434); RBC 5.07 M/mm3 (4.00-5.60); RDW 11.9 % (11.9-15.9); URINE APPEARANCE CLEAR; URINE BILIRUBIN NEGATIVE (<2.0 mg/dL); URINE COLOR STRAW; URINE GLUCOSE (UA) 3+ (NEGATIVE); URINE KETONE 2+ (NEGATIVE); URINE LEUK ESTERASE NEGATIVE (NEGATIVE); URINE NITRITE NEGATIVE (NEGATIVE); URINE PROTEIN NEGATIVE (NEGATIVE); URINE UROBILINOGEN NEGATIVE mg/dL (0.2-1.0); WHITE BLOOD COUNT 6.2 K/mm3 (4.0-10.0)
[2017-12-17 03:39] LABS: VENOUS PC02 34.4 mmHg (38-52); VENOUS PH 7.38 (7.32-7.42); VENOUS PO2 91.9 mmHg (28-48)
[2017-12-17 03:49] LABS: INR 0.91 (0.82-1.09); PROTHROMBIN TIME (PATIENT) 10.3 SEC (9.7-13.0)
[2017-12-17 03:52] LABS: ACTIVATED PTT 24.1 SECONDS (26.9-34.4)
[2017-12-17] MEDS ORDERED: SODIUM CHLORIDE 1,000 ML IV STA (03:54)
[2017-12-17 03:59] LABS: ALBUMIN 3.7 g/dl (3.4-5.0); ANION GAP 12 (8-16); BILIRUBIN,TOTAL 0.6 mg/dL (0.2-1.0); BLOOD UREA NITROGEN 21 mg/dL (7-18); CALCIUM 8.6 mg/dL (8.5-10.1); CHLORIDE 100 mmol/L (98-107); CO2 21 mmol/L (21-32); CREATININE 1.2 mg/dL (0.7-1.3); POTASSIUM 4.3 mmol/L (3.5-5.1); SGOT/AST 14 U/L (15-37); SGPT/ALT 21 U/L (12-78); SODIUM 133 mmol/L (136-145); TOT PROT 6.7 g/dl (6.4-8.2)
[2017-12-17 04:02] LABS: ALK PHOS 101 U/L (45-117)
[2017-12-17 04:06] LABS: GLUCOSE,RANDOM 397 mg/dL (74-106)
[2017-12-17] MEDS ORDERED: INSULIN REGULAR HUMAN 100 UNITS/ML *VIAL IVPUSH ONE (04:21)
[2017-12-17] MEDS ORDERED: INSULIN REGULAR HUMAN 100 UNITS/ML *VIAL ONE (04:41)
[2017-12-17 05:43] VITALS: BP 113/67; PULSE 80
--- NOTE | 2017-12-17 11:53 | EKG ---
Test Reason : Blood Pressure : / mmHG Vent. Rate : 078 BPM Atrial Rate : 078 BPM P-R Int : 136 ms QRS Dur : 098 ms QT Int : 372 ms P-R-T Axes : 066 074 055 degrees QTc Int : 424 ms NORMAL SINUS RHYTHM ST ELEVATION, CONSIDER EARLY REPOLARIZATION, PERICARDITIS, OR INJURY NORMAL ECG Confirmed by MD VALENTINE, BHAVIK ([id number]) on 12/17/2017 11:52:57 AM Referred By: Confirmed By:BHAVIK GRIJALVA MD
== END 2017-12-17 06:29 | disposition home or self-care (01) ==
LOC: JER 00:43
PROC: 3E0337Z Introduction of Electrolytic and Water Balance Substance into Peripheral Vein, Percutaneous Approach (ICD-10-PCS; principal; 2017-12-17)
PROC: 3E033GC Introduction of Other Therapeutic Substance into Peripheral Vein, Percutaneous Approach (ICD-10-PCS; 2017-12-17)
PROC: 3E013VG Introduction of Insulin into Subcutaneous Tissue, Percutaneous Approach (ICD-10-PCS; 2017-12-17)
DX: E10.65 Type 1 diabetes mellitus with hyperglycemia (principal); Z79.4 Long term (current) use of insulin
CPT/HCPCS: 36415; 80053; 81003; 82009; 82550; 82803; 82962; 84484; 85025; 85610; 85730; 93005; 93010; 96361; 96374; 96375; 99282-25; J7030

== ENCOUNTER 2018-09-28 11:47 | Inpatient (IN) | payer OTHER ==
[2018-09-28] MEDS ORDERED: SODIUM CHLORIDE 1,000 ML IV STA (12:13)
--- NOTE | 2018-09-28 12:25 | PDOC ---
Attending Attestation - HPI HPI: 09/28/18 12:26 The patient is a 23 year old male with a PMH of Type 1 insulin dependent diabetes who presents to the ER with elevated blood glucose. Patient states he measured his blood glucose and found it to be over 500 this morning after eating. The patient is also complaining of associated body aches, generalized weakness, tactile body aches, nausea, cough productive of yellow sputum, polydypsia, and polyuria. Patient states that he takes 30 units of Lantus in the morning, last took yesterday morning. Patient is not currently following with an correction officer head. Patient denies any chest pain, shortness of breath, vomiting, vision changes, lightheadedness, dizziness, hematuria, or dysuria. Allergies: NKDA Surgerical Hx: None reported Social Hx: No reported alcohol, drug or cigarette use. - Physicial Exam PE: 09/28/18 12:26 ADULT EXAM GENERAL: Awake, alert, and fully oriented, in no acute distress ENT: (+) Dry mucous membranes LUNGS: Breath sounds equal, clear to auscultation bilaterally. No wheezes, and no crackles HEART: Regular rate and rhythm, normal S1 and S2, no murmurs, rubs or gallops ABDOMEN: Soft, nontender. No guarding, no rebound. No masses EXTREMITIES: Normal range of motion, no edema. NEUROLOGICAL: Cranial nerves II through XII grossly intact. Normal speech SKIN: Warm, Dry, normal turgor, no rashes or lesions noted. - Medical Decision Making 09/28/18 12:41 Imaging: portable chest XR Impression: No acute chest pathology Reported by: Dr. Vasques <Joie Hunt - Last Filed: 09/28/18 12:41> - Resident Resident Name: Yimi Gustafson - ED Attending Attestation I have performed the following: I have examined & evaluated the patient, The case was reviewed & discussed with the resident, I agree w/resident's findings & plan, Exceptions are as noted - Medical Decision Making 09/28/18 12:23 A portion of this note was documented by scribe services under my direction. I have reviewed the details of the note, within reason, and agree with the documentation with the following case summary and management plan written by me. Patient treated in the ED. Nursing notes are reviewed and incorporated into the medical decision-making. Vital signs reviewed. Peripheral IV access obtained by the nurse, laboratory studies are drawn and sent, reviewed and interpreted by myself. Vital Signs Temp Pulse Resp BP Pulse Ox 98.1 F 115 H 20 128/75 100 09/28/18 11:52 09/28/18 11:52 09/28/18 11:52 09/28/18 11:52 09/28/18 11:52 23-year-old male with history of type 1 diabetes presents with hyperglycemia. The patient has had prior history of DKA's. He is reportedly on 30 units of Lantus in the morning. Yesterday, patient took his last dose. However, patient doors tactile fevers and body aches and chills as well as yellowish productive cough. Denies dysuria, vomiting but does endorse polyuria and polydipsia. Patient believes he is in DKA. I suspect patient likely is in diabetic ketoacidosis. This may be set off by an infection. We'll rule out pneumonia or bronchitis. We'll likely need to initiate antibiotics. IV fluids and likely insulin drip and admission to the hospital. 09/28/18 13:10 CBC, BMP 09/28/18 12:23 09/28/18 12:23 CMP Sodium 131 mmol/L (136-145) L 09/28/18 12:23 Potassium 4.7 mmol/L (3.5-5.1) 09/28/18 12:23 Chloride 92 mmol/L (98-107) L 09/28/18 12:23 Carbon Dioxide 20 mmol/L (21-32) L 09/28/18 12:23 Anion Gap 19 MMOL/L (8-16) H 09/28/18 12:23 BUN 15 mg/dL (7-18) 09/28/18 12:23 Creatinine 1.4 mg/dL (0.55-1.3) H 09/28/18 12:23 Creat Clearance w eGFR > 60 (>60) 09/28/18 12:23 POC Glucometer 467 UNITS (80-120) 09/28/18 12:13 Random Glucose 438 mg/dL (74-106) H* 09/28/18 12:23 Calcium 9.7 mg/dL (8.5-10.1) 09/28/18 12:23 Total Bilirubin 0.6 mg/dL (0.2-1) 09/28/18 12:23 AST 14 U/L (15-37) L 09/28/18 12:23 ALT 19 U/L (13-61) 09/28/18 12:23 Alkaline Phosphatase 93 U/L (45-117) 09/28/18 12:23 Creatine Kinase 123 U/L (26-308) 09/28/18 12:23 Troponin I < 0.02 ng/ml (0.00-0.05) 09/28/18 12:23 Total Protein 7.9 g/dl (6.4-8.2) 09/28/18 12:23 Albumin 4.6 g/dl (3.4-5.0) 09/28/18 12:23 +Acetone Elevated AG and glucose suggests DKA. Will order insulin drip and admit. Chest xray reviewed. No acute findings. 09/28/18 14:14 Pt noted with fever. Blood cultures drawn. Will initiate empiric IV ceftriaxone. Admit. <Gordo Blanco - Last Filed: 09/28/18 14:15> Heart Score/ECG Review #1 ECG reviewed & interpreted by me at: 12:45 09/28/18 12:54 NSR 108, no std/gregory, normal axis, normal intervals, QTC 428 msec <Gordo Blanco - Last Filed: 09/28/18 14:15>
[2018-09-28 12:34] LABS: VENOUS PC02 39.9 mmHg (38-52); VENOUS PH 7.33 (7.32-7.42); VENOUS PO2 22.4 mmHg (28-48)
--- NOTE | 2018-09-28 12:36 | PDOC ---
History of Present Illness - General Chief Complaint: Blood Sugar Problem Stated Complaint: SUGAR OVER 500 Time Seen by Provider: 09/28/18 12:06 History Source: Patient - History of Present Illness Initial Comments: 09/28/18 12:33 Patient is a 23M with history of IDDM, DKA, s/p appy here today complaining of sugar over 500. Patient states that he last took his insulin yesterday morning. Endorses subjective fevers, chills, nausea and productive cough. Denies sick contacts. Denies chest pain, endorses shortness of breath. Denies abdominal pain , dysuria. Endorses a mild headache. Patient states that this feels like one of his episodes of dka in the past. Past History - Past Medical History Allergies/Adverse Reactions: Allergies Allergy/AdvReac Type Severity Reaction Status Date / Time No Known Allergies Allergy Verified 12/17/17 01:34 Home Medications: Ambulatory Orders Insulin Glargine,Hum.rec.anlog [Basaglar Kwikpen U-100] 30 unit SQ DAILY Anemia: No Asthma: No Cancer: No Cardiac Disorders: No CVA: No COPD: No Diabetes: Yes (IDDM) - Suicide/Smoking/Psychosocial Hx Smoking History: Never smoked Have you smoked in the past 12 months: No Information on smoking cessation initiated: Yes Hx Alcohol Use: Yes ("sometimes") Drug/Substance Use Hx: No Hx Substance Use Treatment: No Review of Systems - Review of Systems Comments:: 09/28/18 12:54 GENERAL/CONSTITUTIONAL: +fever +chills. HEAD, EYES, EARS, NOSE AND THROAT: No change in vision. No sore throat. CARDIOVASCULAR: No chest pain +shortness of breath RESPIRATORY: +cough, no wheezing, or hemoptysis. GASTROINTESTINAL: +nausea, no vomiting, diarrhea or constipation. GENITOURINARY: No dysuria, frequency, or change in urination. MUSCULOSKELETAL: No joint or muscle swelling or pain. No neck or back pain. SKIN: No rash NEUROLOGIC: +headache, no vertigo, loss of consciousness, or change in strength/ sensation. ENDOCRINE: No increased thirst. No abnormal weight change HEMATOLOGIC/LYMPHATIC: No anemia, easy bleeding, or history of blood clots. ALLERGIC/IMMUNOLOGIC: No hives or skin allergy. *Physical Exam - Vital Signs Last Vital Signs Temp Pulse Resp BP Pulse Ox 98.1 F 115 H 20 128/75 100 09/28/18 11:52 09/28/18 11:52 09/28/18 11:52 09/28/18 11:52 09/28/18 11:52 - Physical Exam Comments: 09/28/18 12:55 GENERAL: Awake, alert, and fully oriented, tired appearing HEAD: No signs of trauma, normocephalic, atraumatic EYES: PERRLA, EOMI, sclera anicteric, conjunctiva clear ENT: Auricles normal inspection, hearing grossly normal, nares patent, oropharynx clear without exudates. Moist mucosa NECK: Normal ROM, supple, no lymphadenopathy, JVD, or masses LUNGS: Tachypneic, ctab HEART: Tachycardic, normal S1 and S2, no murmurs, rubs or gallops, peripheral pulses normal and equal bilaterally. ABDOMEN: Soft, nontender, normoactive bowel sounds. No guarding, no rebound. No masses EXTREMITIES: Normal inspection, Normal range of motion, no edema. No clubbing or cyanosis. NEUROLOGICAL: Cranial nerves II through XII grossly intact. Normal speech, no focal sensorimotor deficits SKIN: Warm, Dry, normal turgor, no rashes or lesions noted Moderate Sedation - Procedure Monitoring Vital Signs: Procedure Monitoring Vital Signs Temperature 98.1 F 09/28/18 11:52 Pulse Rate 115 H 09/28/18 11:52 Respiratory Rate 20 09/28/18 11:52 Blood Pressure 128/75 09/28/18 11:52 O2 Sat by Pulse Oximetry (%) 100 09/28/18 11:52 ED Treatment Course - LABORATORY CBC & Chemistry Diagram: 09/28/18 12:23 09/28/18 12:23 - ADDITIONAL ORDERS Additional order review: Laboratory Results 09/28/18 12:13 POC Glucometer 467 09/28/18 12:13 POC Glucometer 467 - RADIOLOGY Radiology Studies Ordered: Category Date Time Status CXRPORT [CHEST X-RAY PORTABLE*] [RAD] Stat Radiology 09/28/18 12:14 Ordered Medical Decision Making - Medical Decision Making 09/28/18 12:56 Patient is 23M with history of IDDM, DKA, s/p appy here today with hyperglycemia at home, fever, cough. Vitals notable for tachycardia. Not tachypneic in triage, tachypneic to 24 during my exam. No focal infection source obviously apparent, but low threshold to treat. DDx includes, but is not limited to: DKA/HHS, pneumonia, viral syndrome, uti. EKG shows sinus tachycardia to 108. No st elevations/depressions. Normal axis. Normal intervals. No significant t wave abnormalities. 09/28/18 12:58 CXR clear. 09/28/18 13:13 CMP shows gap of 19, acetone positive. K 4.3 Corrected sodium 139. Fluids changed to ns w/ 20meq kcl, insulin drip started at 0.1u/kg. 09/28/18 13:22 Temp 102.3, flu negative. Will cover empirically with ceftriaxone. Will treat with tylenol. Patient reassessed considering other possible infectious sources. Resting comfortably, no meningeal signs, soft nontender belly, clear lungs. Pending UA. No altered mental status, patient is tired. Do not suspect meningitis at this time. Hospitalist and ICU paged. Case d/w [employer] [place]. No ICU beds available at this time. Likely will be able to close gap before ICU bed becomes available. 09/28/18 14:16 Case d/w Melissa Bliss, accepted to [facility] service. Insulin drip started 1410, will do BMP at 1600. *DC/Admit/Observation/Transfer Diagnosis at time of Disposition: DKA (diabetic ketoacidoses) - Discharge Dispostion Condition at time of disposition: Critical Decision to Admit order: Yes - Referrals - Patient Instructions - Post Discharge Activity
[2018-09-28 12:38] LABS: BASO % 0.7 % (0-2.0); HEMATOCRIT 54.7 % (35.4-49); HEMOGLOBIN 18.9 GM/dL (11.7-16.9); LYMPH % 4.3 % (8-40); MCH 30.6 pg (25.7-33.7); MCHC 34.5 g/dl (32.0-35.9); MEAN CELL VOLUME 88.5 fl (80-96); MEAN PLT VOLUME 9.1 fl (7.5-11.1); MONO % 5.4 % (3.8-10.2); NEUT % 89.6 % (42.8-82.8); PLATELET COUNT 204 K/MM3 (134-434); RBC 6.18 M/mm3 (4.00-5.60); RDW 12.5 % (11.9-15.9); WHITE BLOOD COUNT 14.3 K/mm3 (4.0-10.0)
[2018-09-28 12:51] LABS: INR 0.97 (0.83-1.09); PROTHROMBIN TIME (PATIENT) 11.4 SEC (9.7-13.0)
[2018-09-28 13:08] LABS: ALBUMIN 4.6 g/dl (3.4-5.0); ALK PHOS 93 U/L (45-117); ANION GAP 19 MMOL/L (8-16); BILIRUBIN,TOTAL 0.6 mg/dL (0.2-1); BLOOD UREA NITROGEN 15 mg/dL (7-18); CALCIUM 9.7 mg/dL (8.5-10.1); CHLORIDE 92 mmol/L (98-107); CO2 20 mmol/L (21-32); CREATININE 1.4 mg/dL (0.55-1.3); POTASSIUM 4.7 mmol/L (3.5-5.1); SGOT/AST 14 U/L (15-37); SGPT/ALT 19 U/L (13-61); SODIUM 131 mmol/L (136-145); TOT PROT 7.9 g/dl (6.4-8.2)
[2018-09-28 13:09] LABS: GLUCOSE,RANDOM 438 mg/dL (74-106)
[2018-09-28] MEDS ORDERED: SODIUM CHLORIDE 0.45%/POT 20 MEQ/1,000 ML INFUS.BAG IV SCH (13:15)
[2018-09-28] MEDS ORDERED: INSULIN REGULAR 100 UNITS in SODIUM CHLORIDE 99 ML IVPB SCH (13:15)
[2018-09-28] MEDS ORDERED: ACETAMINOPHEN 1000 MG/100 ML VIAL (NON FORMULARY) IVPB ONE (13:22)
[2018-09-28] MEDS ORDERED: CEFTRIAXONE 1,000 MG in DEXTROSE 5%-WATER - 50 ML IVPB ONE (13:22)
[2018-09-28] MEDS ORDERED: SODIUM CHLORIDE 0.9%/KCL 20 MEQ/1,000 ML INFUS.BAG IV SCH (13:45)
[2018-09-28] MEDS ORDERED: ACETAMINOPHEN INJECTION 100 ML IVPB ONE (13:49)
[2018-09-28] MEDS ORDERED: CEFTRIAXONE 1 GM/50 ML BAG ONE (13:49)
--- NOTE | 2018-09-28 15:43 | CON.ID ---
Consult Consult Specialty:: infectious diseases Referred by:: hospitalist Reason for Consultation:: fever,ams,dka - History of Present Illness Chief Complaint: ams,fever History of Present Illness: patient unable to give any history as he has ams history obtained from the charts and from the sister who is with him in the er 23 year with history of insulin dependent diabetes (diagnosed at age 13), DKA and appendectomy. He presents to the ED for general malaise, tachycardia, and hyperglycemia at home. No shortness of breath on admission. He was also noted to have a fever of 102.4 on admission. patient also with ams patient started on iv fluids and on insulin - History Source History Provided By: Family Member Limitations to Obtaining History: Clinical Condition - Past Medical History Endocrine: Yes: Diabetes Mellitus (On insulin) - Alcohol/Substance Use Hx Alcohol Use: Yes ("sometimes") - Smoking History Smoking history: Never smoked Have you smoked in the past 12 months: No Home Medications - Allergies Allergies/Adverse Reactions: Allergies Allergy/AdvReac Type Severity Reaction Status Date / Time No Known Allergies Allergy Verified 12/17/17 01:34 - Home Medications Home Medications: Ambulatory Orders Insulin Glargine,Hum.rec.anlog [Basaglar Kwikpen U-100] 30 unit SQ DAILY Review of Systems Unable to obtain ROS, reason: unable to obtain Physical Exam Vital Signs: Vital Signs Temperature 102.3 F H 09/28/18 13:20 Pulse Rate 115 H 09/28/18 11:52 Respiratory Rate 20 09/28/18 11:52 Blood Pressure 128/75 09/28/18 11:52 O2 Sat by Pulse Oximetry (%) 99 09/28/18 12:48 Constitutional: Yes: Well Nourished, Calm, Other Eyes: Yes: Conjunctiva Clear HENT: Yes: Atraumatic, Normocephalic Neck: Yes: Supple, Trachea Midline Cardiovascular: Yes: Regular Rate and Rhythm Respiratory: Yes: Regular, CTA Bilaterally Gastrointestinal: Yes: Normal Bowel Sounds, Soft Musculoskeletal: Yes: WNL Extremities: Yes: WNL, Other (tatoos) Neurological: Yes: Confusion, Lethargy Psychiatric: Yes: Other Labs: CBC, BMP 09/28/18 12:23 09/28/18 12:23 Imaging - Results Chest X-ray: Report Reviewed, Image Reviewed Assessment/Plan 23 year with history of insulin dependent diabetes (diagnosed at age 13), DKA and appendectomy. He presents to the ED for general malaise, tachycardia, and hyperglycemia at home. No shortness of breath on admission. He was also noted to have a fever of 102.4 on admission. dm fever ams leukocytosis plan will start patient on abx empirically close watch await for all cx reports monitor wbc once we have all will decide about abx
--- NOTE | 2018-09-28 16:06 | HP ---
CHIEF COMPLAINT: elevated blood sugars PCP: Dr. Vazquez HISTORY OF PRESENT ILLNESS: Patient is 23 year with history of insulin dependent diabetes (diagnosed at age 13), DKA and appendectomy. He presents to the ED for general malaise, tachycardia, and hyperglycemia at home. No shortness of breath on admission. He was also noted to have a fever of 102.4 on admission. He is here with severe volume depletion with a potassium of 4.7. anion gap of 19 and acetone small positive. Given 1 liter of IVF in the ED, started on insulin drip at 2pm and fluids changed to NS with 20meq @100cc/hr. Currently NPO. He has DKA likely secondary to insulin non adherence. He is on Basaglar at home 30 units daily, but per sister, at times he is non compliant. gap 19, carbon dioxide 20, glucose 400, ph 7.33, lactic acid pending Received 1 liter bolus of ivf, and now on NS with 20meq @100cc/hr. insulin drip started at 2pm. Patient took 30 units of Basaglar this am per sister. plan: trend glucose with fasting bs q 1 hour insulin drip NS with 20meq @100cc/hr trend lactic acid trend electrolytes na, k, mag and keep K at 4 or greater NPO for now, and advance diet once DKA resolves When plasma glucose reaches 200 ml/dl, fluid therapy should be changed to dextrose 5% with 0.45% NACL 150 cc per hour in order to avoid hypoglycemia. ER course was notable for: (1) capillary glucose 400s, serum 400, urine ketones pending, acetone pos small. (2) given 1 liter bolus in the ED (3) fever, tachycardia, likely acute infection. blood cultures pending. started on emperic ceftriaxone. Recent Travel: denies PAST MEDICAL HISTORY: denies PAST SURGICAL HISTORY: denies Social History: Smoking: denies Alcohol: occasionally Drugs: denies Family History: Allergies No Known Allergies Allergy (Verified 12/17/17 01:34) HOME MEDICATIONS: Home Medications Medication Instructions Recorded Insulin Glargine,Hum.rec.anlog 30 unit SQ DAILY 09/28/18 [Basaglar Kwikpen U-100] REVIEW OF SYSTEMS CONSTITUTIONAL: PRESENT: fever, chills, diaphoresis, generalized weakness, malaise, loss of appetite, weight change HEENT: Absent: rhinorrhea, nasal congestion, throat pain, throat swelling, difficulty swallowing, mouth swelling, ear pain, eye pain, visual changes CARDIOVASCULAR: Absent: chest pain, syncope, palpitations, irregular heart rate, lightheadedness , peripheral edema RESPIRATORY: Absent: cough, shortness of breath, dyspnea with exertion, orthopnea, wheezing, stridor, hemoptysis GASTROINTESTINAL: Absent: abdominal pain, abdominal distension, nausea, vomiting, diarrhea, constipation, melena, hematochezia GENITOURINARY: Absent: dysuria, frequency, urgency, hesitancy, hematuria, flank pain, genital pain MUSCULOSKELETAL: Absent: myalgia, arthralgia, joint swelling, back pain, neck pain SKIN: Absent: rash, itching, pallor HEMATOLOGIC/IMMUNOLOGIC: Absent: easy bleeding, easy bruising, lymphadenopathy, frequent infections ENDOCRINE: Absent: unexplained weight gain, unexplained weight loss, heat intolerance, cold intolerance NEUROLOGIC: Absent: headache, focal weakness or paresthesias, dizziness, unsteady gait, seizure, mental status changes, bladder or bowel incontinence PSYCHIATRIC: Absent: anxiety, depression, suicidal or homicidal ideation, hallucinations. PHYSICAL EXAMINATION Vital Signs - 24 hr 09/28/18 09/28/18 09/28/18 11:52 12:48 13:20 Temperature 98.1 F 102.3 F H Pulse Rate 115 H Respiratory 20 Rate Blood Pressure 128/75 O2 Sat by Pulse 100 99 Oximetry (%) GENERAL: Awake, alert, mildly lethargic. and fully oriented, bahamian speaking mostly HEAD: Normal with no signs of trauma. EYES: Pupils equal, round and reactive to light, extraocular movements intact, sclera anicteric, conjunctiva clear. No lid lag. EARS, NOSE, THROAT: Ears normal, nares patent, oropharynx clear without exudates. Moist mucous membranes. NECK: Normal range of motion, supple without lymphadenopathy, JVD, or masses. LUNGS: Breath sounds equal, clear to auscultation bilaterally. diminished at the bases. HEART: Regular rate and rhythm, ABDOMEN: Soft, nontender, not distended, normoactive bowel sounds, no guarding, no rebound, no masses. MUSCULOSKELETAL: Normal range of motion at all joints. No bony deformities or tenderness. No CVA tenderness. UPPER EXTREMITIES: . No peripheral edema. LOWER EXTREMITIES: No peripheral edema. NEUROLOGICAL: Normal speech. PSYCHIATRIC: Cooperative. Good eye contact. Appropriate mood and affect. SKIN: extensive tattoos Laboratory Results - last 24 hr 09/28/18 09/28/18 09/28/18 12:13 12:14 12:23 WBC 14.3 H RBC 6.18 H Hgb 18.9 H Hct 54.7 H D MCV 88.5 MCH 30.6 MCHC 34.5 RDW 12.5 Plt Count 204 MPV 9.1 Absolute Neuts (auto) 12.8 H Neutrophils % 89.6 H D Lymphocytes % 4.3 L D Monocytes % 5.4 Eosinophils % 0.0 D Basophils % 0.7 Nucleated RBC % 0 PT with INR INR VBG pH 7.33 POC VBG pCO2 39.9 POC VBG pO2 22.4 L Mixed VBG HCO3 20.6 Sodium Potassium Chloride Carbon Dioxide Anion Gap BUN Creatinine Creat Clearance w eGFR POC Glucometer 467 Random Glucose Calcium Total Bilirubin AST ALT Alkaline Phosphatase Creatine Kinase Troponin I Total Protein Albumin Acetone, Qual Influenza A (Rapid) Influenza B (Rapid) 09/28/18 09/28/18 09/28/18 12:23 12:23 12:23 WBC RBC Hgb Hct MCV MCH MCHC RDW Plt Count MPV Absolute Neuts (auto) Neutrophils % Lymphocytes % Monocytes % Eosinophils % Basophils % Nucleated RBC % PT with INR 11.40 INR 0.97 VBG pH POC VBG pCO2 POC VBG pO2 Mixed VBG HCO3 Sodium 131 L Potassium 4.7 Chloride 92 L Carbon Dioxide 20 L Anion Gap 19 H BUN 15 Creatinine 1.4 H Creat Clearance w eGFR > 60 POC Glucometer Random Glucose 438 H* Calcium 9.7 Total Bilirubin 0.6 AST 14 L ALT 19 Alkaline Phosphatase 93 Creatine Kinase 123 Troponin I < 0.02 Total Protein 7.9 Albumin 4.6 Acetone, Qual Positive small 1+ Influenza A (Rapid) Influenza B (Rapid) 09/28/18 09/28/18 09/28/18 12:41 13:56 15:14 WBC RBC Hgb Hct MCV MCH MCHC RDW Plt Count MPV Absolute Neuts (auto) Neutrophils % Lymphocytes % Monocytes % Eosinophils % Basophils % Nucleated RBC % PT with INR INR VBG pH POC VBG pCO2 POC VBG pO2 Mixed VBG HCO3 Sodium Potassium Chloride Carbon Dioxide Anion Gap BUN Creatinine Creat Clearance w eGFR POC Glucometer 398 332 Random Glucose Calcium Total Bilirubin AST ALT Alkaline Phosphatase Creatine Kinase Troponin I Total Protein Albumin Acetone, Qual Influenza A (Rapid) Negative Influenza B (Rapid) Negative ASSESSMENT/PLAN: Patient is 23 year with history of insulin dependent diabetes (diagnosed at age 13), DKA and appendectomy. He presents to the ED for general malaise, tachycardia, and hyperglycemia at home. No shortness of breath on admission. He was also noted to have a fever of 102.4 on admission. He is here with severe volume depletion with a potassium of 4.7. anion gap of 19 and acetone small positive. Given 1 liter of IVF in the ED, started on insulin drip at 2pm and fluids changed to NS with 20meq @100cc/hr. Currently NPO. Endocrine: He has DKA likely secondary to insulin non adherence. He is on Basaglar at home 30 units daily, but per sister, at times he is non compliant. gap 19, carbon dioxide 20, glucose 400, ph 7.33, lactic acid pending Received 1 liter bolus of ivf, and now on NS with 20meq @100cc/hr. insulin drip started at 2pm. Patient took 30 units of Basaglar this am per sister. plan: trend glucose with fasting bs q 1 hour insulin drip NS with 20meq @100cc/hr trend lactic acid trend electrolytes na, k, mag and keep K at 4 or greater NPO for now, and advance diet once DKA resolves When plasma glucose reaches 200 ml/dl, fluid therapy should be changed to dextrose 5% with 0.45% NACL 150 cc per hour in order to avoid hypoglycemia. Goal is serum bicarb >18, venous PH>7.3 and anion gap<10. If plasma potassium falls below 3.3 insulin should be discontinued and K repleted IV. Insulin drip can be restarted once K levels return to >4 ID: Rule out sepsi presents with tachycardia, fevers of 102, chills and general malaise. blood cultures pending. lactic acid pending. started on ceftriaxone Awaiting bed in ICU. Visit type - Emergency Visit Emergency Visit: Yes ED Registration Date: 09/28/18 Care time: The patient presented to the Emergency Department on the above date and was hospitalized for further evaluation of their emergent condition. - New Patient This patient is new to me today: Yes Date on this admission: 09/28/18 - Critical Care Critical Care patient: Yes Total Critical Care Time (in minutes): 45 Critical Care Statement: The care of this patient involved high complexity decision making to prevent further life threatening deterioration of the patient 's condition and/or to evaluate & treat vital organ system(s) failure or risk of failure.
--- NOTE | 2018-09-28 16:06 | PN ---
Physical Exam: SUBJECTIVE: Patient seen and examined OBJECTIVE: Vital Signs Period Temp Pulse Resp BP Sys/Newman Pulse Ox Last 24 Hr 98.1 F-102.3 F 115 20 128/75 99-100 GENERAL: The patient is awake, alert, and fully oriented, in no acute distress. HEAD: Normal with no signs of trauma. EYES: PERRL, extraocular movements intact, sclera anicteric, conjunctiva clear. No ptosis. ENT: Ears normal, nares patent, oropharynx clear without exudates, moist mucous membranes. NECK: Trachea midline, full range of motion, supple. LUNGS: Breath sounds equal, clear to auscultation bilaterally, no wheezes, no crackles, no accessory muscle use. HEART: Regular rate and rhythm, S1, S2 without murmur, rub or gallop. ABDOMEN: Soft, nontender, nondistended, normoactive bowel sounds, no guarding, no rebound, no hepatosplenomegaly, no masses. EXTREMITIES: 2+ pulses, warm, well-perfused, no edema. NEUROLOGICAL: Cranial nerves II through XII grossly intact. Normal speech, gait not observed. PSYCH: Normal mood, normal affect. SKIN: Warm, dry, normal turgor, no rashes or lesions noted Laboratory Results - last 24 hr 09/28/18 09/28/18 09/28/18 12:13 12:14 12:23 WBC 14.3 H RBC 6.18 H Hgb 18.9 H Hct 54.7 H D MCV 88.5 MCH 30.6 MCHC 34.5 RDW 12.5 Plt Count 204 MPV 9.1 Absolute Neuts (auto) 12.8 H Neutrophils % 89.6 H D Lymphocytes % 4.3 L D Monocytes % 5.4 Eosinophils % 0.0 D Basophils % 0.7 Nucleated RBC % 0 PT with INR INR VBG pH 7.33 POC VBG pCO2 39.9 POC VBG pO2 22.4 L Mixed VBG HCO3 20.6 Sodium Potassium Chloride Carbon Dioxide Anion Gap BUN Creatinine Creat Clearance w eGFR POC Glucometer 467 Random Glucose Calcium Total Bilirubin AST ALT Alkaline Phosphatase Creatine Kinase Troponin I Total Protein Albumin Acetone, Qual Influenza A (Rapid) Influenza B (Rapid) 09/28/18 09/28/18 09/28/18 12:23 12:23 12:23 WBC RBC Hgb Hct MCV MCH MCHC RDW Plt Count MPV Absolute Neuts (auto) Neutrophils % Lymphocytes % Monocytes % Eosinophils % Basophils % Nucleated RBC % PT with INR 11.40 INR 0.97 VBG pH POC VBG pCO2 POC VBG pO2 Mixed VBG HCO3 Sodium 131 L Potassium 4.7 Chloride 92 L Carbon Dioxide 20 L Anion Gap 19 H BUN 15 Creatinine 1.4 H Creat Clearance w eGFR > 60 POC Glucometer Random Glucose 438 H* Calcium 9.7 Total Bilirubin 0.6 AST 14 L ALT 19 Alkaline Phosphatase 93 Creatine Kinase 123 Troponin I < 0.02 Total Protein 7.9 Albumin 4.6 Acetone, Qual Positive small 1+ Influenza A (Rapid) Influenza B (Rapid) 09/28/18 09/28/18 09/28/18 12:41 13:56 15:14 WBC RBC Hgb Hct MCV MCH MCHC RDW Plt Count MPV Absolute Neuts (auto) Neutrophils % Lymphocytes % Monocytes % Eosinophils % Basophils % Nucleated RBC % PT with INR INR VBG pH POC VBG pCO2 POC VBG pO2 Mixed VBG HCO3 Sodium Potassium Chloride Carbon Dioxide Anion Gap BUN Creatinine Creat Clearance w eGFR POC Glucometer 398 332 Random Glucose Calcium Total Bilirubin AST ALT Alkaline Phosphatase Creatine Kinase Troponin I Total Protein Albumin Acetone, Qual Influenza A (Rapid) Negative Influenza B (Rapid) Negative Active Medications Generic Name Dose Route Start Last Admin Trade Name Freq PRN Reason Stop Dose Admin Insulin Human Regular 100 100 mls @ 7.25 mls/hr 09/28/18 13:15 09/28/18 14:12 units/ Sodium Chloride IVPB 0.1 units/kg/hr TITR RADHA 7.25 mls/hr Administration Protocol 0.1 UNITS/KG/HR Potassium Chloride/Sodium Chloride 20 meq in 1,000 mls @ 500 mls/hr 09/28/18 13:45 09/28/18 14:00 Ns+20 Meq Kcl - IV 500 mls/hr ASDIR RADHA Administration Ceftriaxone Sodium 1 gm/ 50 mls @ 100 mls/hr 09/29/18 10:00 Dextrose IVPB DAILY RADHA Protocol ASSESSMENT/PLAN:
[2018-09-28 17:03] LABS: ANION GAP 12 MMOL/L (8-16); BLOOD UREA NITROGEN 13 mg/dL (7-18); CALCIUM 8.7 mg/dL (8.5-10.1); CHLORIDE 106 mmol/L (98-107); CO2 20 mmol/L (21-32); GLUCOSE,RANDOM 251 mg/dL (74-106); POTASSIUM 4.5 mmol/L (3.5-5.1); SODIUM 138 mmol/L (136-145)
[2018-09-28] MEDS ORDERED: INSULIN (LEVEMIR) 100 UNITS/ML UNITS SQ ONE ×2 (17:08→17:24)
[2018-09-28] MEDS ORDERED: D5-1/2NS+20 MEQ KCL - 20 MEQ/1,000 ML INFUS.BAG IV SCH (17:15)
[2018-09-28] MEDS ORDERED: DEXTROSE 5%-0.45% SALINE 1,000 ML IV SCH (17:15)
[2018-09-28 17:55] LABS: ALBUMIN 3.6 g/dl (3.4-5.0); ALK PHOS 72 U/L (45-117); BILIRUBIN,DIRECT 0.1 mg/dL (0.0-0.2); BILIRUBIN,TOTAL 0.4 mg/dL (0.2-1); N-TERMINAL BNP 39.8 pg/ml (5-125); SGOT/AST 13 U/L (15-37); SGPT/ALT 16 U/L (13-61); TOT PROT 6.6 g/dl (6.4-8.2)
[2018-09-28 18:38] LABS: URINE APPEARANCE CLEAR; URINE BILIRUBIN NEGATIVE (<2.0 mg/dL); URINE COLOR STRAW; URINE GLUCOSE (UA) 3+ (NEGATIVE); URINE KETONE 2+ (NEGATIVE); URINE LEUK ESTERASE NEGATIVE (NEGATIVE); URINE NITRITE NEGATIVE (NEGATIVE); URINE PROTEIN NEGATIVE (NEGATIVE); URINE UROBILINOGEN NEGATIVE mg/dL (0.2-1.0)
[2018-09-28 19:28] LABS: BASO % 0.3 % (0-2.0); HEMATOCRIT 45.1 % (35.4-49); HEMOGLOBIN 15.9 GM/dL (11.7-16.9); LYMPH % 10.4 % (8-40); MCH 30.9 pg (25.7-33.7); MCHC 35.2 g/dl (32.0-35.9); MEAN CELL VOLUME 87.6 fl (80-96); MEAN PLT VOLUME 8.5 fl (7.5-11.1); MONO % 7.5 % (3.8-10.2); NEUT % 81.8 % (42.8-82.8); PLATELET COUNT 176 K/MM3 (134-434); RBC 5.15 M/mm3 (4.00-5.60); RDW 12.2 % (11.9-15.9); WHITE BLOOD COUNT 12.1 K/mm3 (4.0-10.0)
[2018-09-28 19:55] LABS: ALBUMIN 3.3 g/dl (3.4-5.0); ALK PHOS 68 U/L (45-117); ANION GAP 7 MMOL/L (8-16); BILIRUBIN,TOTAL 0.3 mg/dL (0.2-1); BLOOD UREA NITROGEN 14 mg/dL (7-18); CALCIUM 8.3 mg/dL (8.5-10.1); CHLORIDE 105 mmol/L (98-107); CO2 23 mmol/L (21-32); CREATININE 1.3 mg/dL (0.55-1.3); POTASSIUM 4.6 mmol/L (3.5-5.1); SGOT/AST 8 U/L (15-37); SGPT/ALT 14 U/L (13-61); SODIUM 135 mmol/L (136-145)
[2018-09-28 19:57] LABS: GLUCOSE,RANDOM 350 mg/dL (74-106)
[2018-09-28] MEDS ORDERED: CHLORHEXIDINE GLUCONATE 4% CLEANSER FOR DECOLONIZATION TP SCH (22:00)
[2018-09-28] MEDS ORDERED: MUPIROCIN 2% TOPICAL OINTMENT FOR DECOLONIZATION NS SCH (22:00)
--- NOTE | 2018-09-28 22:03 | EKG ---
Test Reason : Blood Pressure : / mmHG Vent. Rate : 108 BPM Atrial Rate : 108 BPM P-R Int : 124 ms QRS Dur : 086 ms QT Int : 320 ms P-R-T Axes : 073 075 037 degrees QTc Int : 428 ms SINUS TACHYCARDIA OTHERWISE NORMAL ECG WHEN COMPARED WITH ECG OF 17-DEC-2017 02:01, NO SIGNIFICANT CHANGE WAS FOUND Confirmed by CHRISTOPHER VALENCIA MD ([id number]) on 09/28/2018 10:03:37 PM Referred By: Confirmed By:CHRISTOPHER VALENCIA MD
[2018-09-28] MEDS ORDERED: SODIUM CHLORIDE 1,000 ML IV SCH (23:00)
[2018-09-28] MEDS: INSULIN SLIDING SCALE (NOVOLOG) 1 VIAL SQ SCH (23:23)
[2018-09-29 01:58] LABS: ANION GAP 7 MMOL/L (8-16); BLOOD UREA NITROGEN 14 mg/dL (7-18); CALCIUM 8.3 mg/dL (8.5-10.1); CHLORIDE 104 mmol/L (98-107); CO2 24 mmol/L (21-32); CREATININE 0.9 mg/dL (0.55-1.3); GLUCOSE,RANDOM 225 mg/dL (74-106); POTASSIUM 4.2 mmol/L (3.5-5.1); SODIUM 135 mmol/L (136-145)
[2018-09-29] MEDS ORDERED: INSULIN (LEVEMIR) 100 UNITS/ML UNITS SQ ONE (02:48)
[2018-09-29] MEDS ORDERED: ACETAMINOPHEN INJECTION 100 ML IVPB ONE (03:24)
[2018-09-29] MEDS: ACETAMINOPHEN 1000 MG/100 ML VIAL (NON FORMULARY) IVPB PRN ×2 (03:31→16:54)
[2018-09-29] MEDS ORDERED: OSELTAMIVIR PHOSPHATE 75 MG CAPSULE ONE (03:39)
[2018-09-29] MEDS ORDERED: INSULIN REGULAR HUMAN 100 UNITS/ML *VIAL SQ ONE (04:02)
[2018-09-29] MEDS: INSULIN SLIDING SCALE (NOVOLOG) 1 VIAL SQ SCH ×2 (06:26→17:11)
[2018-09-29 06:52] VITALS: BMI 23.3
[2018-09-29] MEDS ORDERED: INSULIN SLIDING SCALE (NOVOLOG) 1 VIAL SQ SCH ×3 (07:00→22:00)
[2018-09-29] MEDS ORDERED: DEXTROSE 5%-WATER - 50 ML IVPB ONE (09:05)
[2018-09-29] MEDS ORDERED: cefTRIAXone SODIUM 1 GM VIAL ONE (09:05)
[2018-09-29 09:39] LABS: BASO % 0.4 % (0-2.0); EOS % 0.4 % (0-4.5); HEMATOCRIT 49.2 % (35.4-49); HEMOGLOBIN 17.5 GM/dL (11.7-16.9); LYMPH % 19.1 % (8-40); MCH 30.9 pg (25.7-33.7); MCHC 35.5 g/dl (32.0-35.9); MEAN CELL VOLUME 87.1 fl (80-96); MEAN PLT VOLUME 8.6 fl (7.5-11.1); MONO % 8.4 % (3.8-10.2); NEUT % 71.7 % (42.8-82.8); PLATELET COUNT 172 K/MM3 (134-434); RBC 5.64 M/mm3 (4.00-5.60); RDW 12.4 % (11.9-15.9); WHITE BLOOD COUNT 11.1 K/mm3 (4.0-10.0)
[2018-09-29] MEDS ORDERED: CEFTRIAXONE 1 GM in DEXTROSE 5%-WATER - 50 ML IVPB SCH (10:00)
[2018-09-29 10:03] LABS: ANION GAP 7 MMOL/L (8-16); BLOOD UREA NITROGEN 12 mg/dL (7-18); CALCIUM 9.2 mg/dL (8.5-10.1); CHLORIDE 106 mmol/L (98-107); CO2 25 mmol/L (21-32); CREATININE 0.7 mg/dL (0.55-1.3); GLUCOSE,RANDOM 147 mg/dL (74-106); MAGNESIUM 2.1 mg/dL (1.8-2.4); POTASSIUM 3.8 mmol/L (3.5-5.1); SODIUM 139 mmol/L (136-145)
[2018-09-29 10:19] LABS: ALBUMIN 3.4 g/dl (3.4-5.0); ALK PHOS 67 U/L (45-117); ANION GAP 8 MMOL/L (8-16); BILIRUBIN,TOTAL 0.4 mg/dL (0.2-1); BLOOD UREA NITROGEN 12 mg/dL (7-18); CALCIUM 9.3 mg/dL (8.5-10.1); CHLORIDE 106 mmol/L (98-107); CO2 26 mmol/L (21-32); CREATININE 0.8 mg/dL (0.55-1.3); GLUCOSE,RANDOM 145 mg/dL (74-106); POTASSIUM 3.8 mmol/L (3.5-5.1); SGOT/AST 11 U/L (15-37); SGPT/ALT 15 U/L (13-61); SODIUM 140 mmol/L (136-145); TOT PROT 6.2 g/dl (6.4-8.2)
[2018-09-29] MEDS: SODIUM CHLORIDE 1,000 ML IV SCH ×2 (11:24→21:22)
--- NOTE | 2018-09-29 11:54 | PN ---
Progress Note, Physician History of Present Illness: patient doing well no issues awake and alert comfortable - Current Medication List Current Medications: Active Medications Acetaminophen (Ofirmev Injection -) 1,000 mg IVPB Q6H PRN PRN Reason: FEVER Last Admin: 09/29/18 03:31 Dose: 1,000 mg Chlorhexidine Gluconate (Hibiclens For Decolonization -) 1 applic TP HS RADHA Ceftriaxone Sodium 1 gm/ (Dextrose) 50 mls @ 100 mls/hr IVPB DAILY RADHA; Protocol Last Admin: 09/29/18 09:09 Dose: 100 mls/hr Sodium Chloride (Normal Saline -) 1,000 mls @ 125 mls/hr IV ASDIR RADHA Last Admin: 09/29/18 11:24 Dose: 125 mls/hr Insulin Aspart (Novolog Vial Sliding Scale -) 1 vial SQ ACHS [facility]; Protocol Last Admin: 09/29/18 11:44 Dose: 8 units Insulin Detemir (Levemir Vial) 30 units SQ HS RADHA - Objective Vital Signs: Vital Signs Temperature 98.4 F 09/29/18 09:40 Pulse Rate 86 09/29/18 06:48 Respiratory Rate 20 09/29/18 06:57 Blood Pressure 116/71 09/29/18 06:48 O2 Sat by Pulse Oximetry (%) 97 09/29/18 06:57 Constitutional: Yes: No Distress, Calm Cardiovascular: Yes: Regular Rate and Rhythm Respiratory: Yes: Regular, CTA Bilaterally Gastrointestinal: Yes: Normal Bowel Sounds, Soft Musculoskeletal: Yes: WNL Extremities: Yes: WNL Neurological: Yes: Alert, Oriented Psychiatric: Yes: Alert, Oriented Labs: CBC, BMP 09/29/18 08:50 09/29/18 08:50 INR, PTT INR 0.97 (0.83-1.09) 09/28/18 12:23 Assessment/Plan 23 year with history of insulin dependent diabetes (diagnosed at age 13), DKA and appendectomy. He presents to the ED for general malaise, tachycardia, and hyperglycemia at home. No shortness of breath on admission. He was also noted to have a fever of 102.4 on admission. dm fever ams leukocytosis plan patient doing well will stop abx and monitor monitor sugars await for all cx reports rest as per the team
--- NOTE | 2018-09-29 13:05 | PN ---
Physical Exam: SUBJECTIVE: Patient seen and examined at the bedside. awake, alert, in no acute distress. palestinian speaking. mom at bedside. patient is feeling better. OBJECTIVE: anion gap now closed, dka resolved. insulin drip stopped. blood sugars more controlled stopped antibiotics per ID continue to hydrate no longer requires ICU level of care Vital Signs Period Temp Pulse Resp BP Sys/Newman Pulse Ox Last 24 Hr 98.4 F-102.3 F 86-105 14-22 116-125/71-89 97-100 GENERAL: Awake, alert, feels better. no nausea, tolerating food. HEAD: Normal with no signs of trauma. EYES: Pupils equal, round and reactive to light, extraocular movements intact, sclera anicteric, conjunctiva clear. No lid lag. EARS, NOSE, THROAT: Ears normal, nares patent, oropharynx clear without exudates. Moist mucous membranes. NECK: Normal range of motion, supple without lymphadenopathy, JVD, or masses. LUNGS: Breath sounds equal, clear to auscultation bilaterally. diminished at the bases. HEART: Regular rate and rhythm, ABDOMEN: Soft, nontender, not distended, normoactive bowel sounds, no guarding, no rebound, no masses. MUSCULOSKELETAL: Normal range of motion at all joints. No bony deformities or tenderness. No CVA tenderness. UPPER EXTREMITIES: . No peripheral edema. LOWER EXTREMITIES: No peripheral edema. NEUROLOGICAL: Normal speech. PSYCHIATRIC: Cooperative. Good eye contact. Appropriate mood and affect. SKIN: extensive tattoos Laboratory Results - last 24 hr 09/28/18 09/28/18 09/28/18 12:23 12:23 13:56 WBC RBC Hgb Hct MCV MCH MCHC RDW Plt Count MPV Absolute Neuts (auto) Neutrophils % Lymphocytes % Monocytes % Eosinophils % Basophils % Nucleated RBC % Sodium 131 L Potassium 4.7 Chloride 92 L Carbon Dioxide 20 L Anion Gap 19 H BUN 15 Creatinine 1.4 H Creat Clearance w eGFR > 60 POC Glucometer 398 Random Glucose 438 H* Hemoglobin A1c % Lactic Acid Calcium 9.7 Phosphorus Magnesium Total Bilirubin 0.6 Direct Bilirubin AST 14 L ALT 19 Alkaline Phosphatase 93 Creatine Kinase 123 Troponin I < 0.02 B-Natriuretic Peptide Total Protein 7.9 Albumin 4.6 Urine Color Urine Appearance Urine pH Ur Specific [place] Urine Protein Urine Glucose (UA) Urine Ketones Urine Blood Urine Nitrite Urine Bilirubin Urine Urobilinogen Ur Leukocyte Esterase Acetone, Qual Positive small 1+ 09/28/18 09/28/18 09/28/18 15:14 16:12 16:25 WBC RBC Hgb Hct MCV MCH MCHC RDW Plt Count MPV Absolute Neuts (auto) Neutrophils % Lymphocytes % Monocytes % Eosinophils % Basophils % Nucleated RBC % Sodium 138 Potassium 4.5 Chloride 106 Carbon Dioxide 20 L Anion Gap 12 BUN 13 Creatinine 1.0 Creat Clearance w eGFR > 60 POC Glucometer 332 264 Random Glucose 251 H Hemoglobin A1c % Lactic Acid Calcium 8.7 Phosphorus Magnesium 2.0 Total Bilirubin 0.4 Direct Bilirubin 0.1 AST 13 L ALT 16 Alkaline Phosphatase 72 Creatine Kinase Troponin I B-Natriuretic Peptide 39.8 Total Protein 6.6 Albumin 3.6 Urine Color Urine Appearance Urine pH Ur Specific [place] Urine Protein Urine Glucose (UA) Urine Ketones Urine Blood Urine Nitrite Urine Bilirubin Urine Urobilinogen Ur Leukocyte Esterase Acetone, Qual 09/28/18 09/28/18 09/28/18 17:18 18:23 18:23 WBC RBC Hgb Hct MCV MCH MCHC RDW Plt Count MPV Absolute Neuts (auto) Neutrophils % Lymphocytes % Monocytes % Eosinophils % Basophils % Nucleated RBC % Sodium Potassium Chloride Carbon Dioxide Anion Gap BUN Creatinine Creat Clearance w eGFR POC Glucometer 209 324 Random Glucose Hemoglobin A1c % Lactic Acid Calcium Phosphorus Magnesium Total Bilirubin Direct Bilirubin AST ALT Alkaline Phosphatase Creatine Kinase Troponin I B-Natriuretic Peptide Total Protein Albumin Urine Color Straw Urine Appearance Clear Urine pH 5.0 Ur Specific [place] 1.031 Urine Protein Negative Urine Glucose (UA) 3+ H Urine Ketones 2+ H Urine Blood Negative Urine Nitrite Negative Urine Bilirubin Negative Urine Urobilinogen Negative Ur Leukocyte Esterase Negative Acetone, Qual 09/28/18 09/28/18 09/28/18 19:20 19:20 19:20 WBC RBC Hgb Hct MCV MCH MCHC RDW Plt Count MPV Absolute Neuts (auto) Neutrophils % Lymphocytes % Monocytes % Eosinophils % Basophils % Nucleated RBC % Sodium 135 L Potassium 4.6 Chloride 105 Carbon Dioxide 23 Anion Gap 7 L BUN 14 Creatinine 1.3 Creat Clearance w eGFR > 60 POC Glucometer Random Glucose 350 H* Hemoglobin A1c % 11.5 H Lactic Acid 2.8 H* Calcium 8.3 L Phosphorus Magnesium Total Bilirubin 0.3 Direct Bilirubin AST 8 L ALT 14 Alkaline Phosphatase 68 Creatine Kinase Troponin I B-Natriuretic Peptide Total Protein 6.0 L Albumin 3.3 L Urine Color Urine Appearance Urine pH Ur Specific [place] Urine Protein Urine Glucose (UA) Urine Ketones Urine Blood Urine Nitrite Urine Bilirubin Urine Urobilinogen Ur Leukocyte Esterase Acetone, Qual 09/28/18 09/28/18 09/28/18 19:20 20:17 22:01 WBC 12.1 H RBC 5.15 Hgb 15.9 Hct 45.1 D MCV 87.6 MCH 30.9 MCHC 35.2 RDW 12.2 Plt Count 176 MPV 8.5 Absolute Neuts (auto) 9.9 H Neutrophils % 81.8 Lymphocytes % 10.4 D Monocytes % 7.5 Eosinophils % 0.0 Basophils % 0.3 Nucleated RBC % 0 Sodium Potassium Chloride Carbon Dioxide Anion Gap BUN Creatinine Creat Clearance w eGFR POC Glucometer 300 205 Random Glucose Hemoglobin A1c % Lactic Acid Calcium Phosphorus Magnesium Total Bilirubin Direct Bilirubin AST ALT Alkaline Phosphatase Creatine Kinase Troponin I B-Natriuretic Peptide Total Protein Albumin Urine Color Urine Appearance Urine pH Ur Specific [place] Urine Protein Urine Glucose (UA) Urine Ketones Urine Blood Urine Nitrite Urine Bilirubin Urine Urobilinogen Ur Leukocyte Esterase Acetone, Qual 09/28/18 09/29/18 09/29/18 22:59 01:22 01:33 WBC RBC Hgb Hct MCV MCH MCHC RDW Plt Count MPV Absolute Neuts (auto) Neutrophils % Lymphocytes % Monocytes % Eosinophils % Basophils % Nucleated RBC % Sodium 135 L Potassium 4.2 Chloride 104 Carbon Dioxide 24 Anion Gap 7 L BUN 14 Creatinine 0.9 Creat Clearance w eGFR > 60 POC Glucometer 150 228 Random Glucose 225 H Hemoglobin A1c % Lactic Acid Calcium 8.3 L Phosphorus Magnesium Total Bilirubin Direct Bilirubin AST ALT Alkaline Phosphatase Creatine Kinase Troponin I B-Natriuretic Peptide Total Protein Albumin Urine Color Urine Appearance Urine pH Ur Specific [place] Urine Protein Urine Glucose (UA) Urine Ketones Urine Blood Urine Nitrite Urine Bilirubin Urine Urobilinogen Ur Leukocyte Esterase Acetone, Qual 09/29/18 09/29/18 09/29/18 03:06 05:47 08:50 WBC 11.1 H RBC 5.64 H Hgb 17.5 H Hct 49.2 H MCV 87.1 MCH 30.9 MCHC 35.5 RDW 12.4 Plt Count 172 MPV 8.6 Absolute Neuts (auto) 8.0 Neutrophils % 71.7 Lymphocytes % 19.1 D Monocytes % 8.4 Eosinophils % 0.4 D Basophils % 0.4 Nucleated RBC % 0 Sodium Potassium Chloride Carbon Dioxide Anion Gap BUN Creatinine Creat Clearance w eGFR POC Glucometer 403 379 Random Glucose Hemoglobin A1c % Lactic Acid Calcium Phosphorus Magnesium Total Bilirubin Direct Bilirubin AST ALT Alkaline Phosphatase Creatine Kinase Troponin I B-Natriuretic Peptide Total Protein Albumin Urine Color Urine Appearance Urine pH Ur Specific [place] Urine Protein Urine Glucose (UA) Urine Ketones Urine Blood Urine Nitrite Urine Bilirubin Urine Urobilinogen Ur Leukocyte Esterase Acetone, Qual 09/29/18 09/29/18 09/29/18 08:50 08:50 08:50 WBC RBC Hgb Hct MCV MCH MCHC RDW Plt Count MPV Absolute Neuts (auto) Neutrophils % Lymphocytes % Monocytes % Eosinophils % Basophils % Nucleated RBC % Sodium 139 140 Potassium 3.8 3.8 Chloride 106 106 Carbon Dioxide 25 26 Anion Gap 7 L 8 BUN 12 12 Creatinine 0.7 0.8 Creat Clearance w eGFR > 60 > 60 POC Glucometer Random Glucose 147 H 145 H Hemoglobin A1c % Lactic Acid Calcium 9.2 9.3 Phosphorus 2.4 L Magnesium 2.1 Total Bilirubin 0.4 Direct Bilirubin AST 11 L ALT 15 Alkaline Phosphatase 67 Creatine Kinase Troponin I B-Natriuretic Peptide Total Protein 6.2 L Albumin 3.4 Urine Color Urine Appearance Urine pH Ur Specific [place] Urine Protein Urine Glucose (UA) Urine Ketones Urine Blood Urine Nitrite Urine Bilirubin Urine Urobilinogen Ur Leukocyte Esterase Acetone, Qual 09/29/18 11:30 WBC RBC Hgb Hct MCV MCH MCHC RDW Plt Count MPV Absolute Neuts (auto) Neutrophils % Lymphocytes % Monocytes % Eosinophils % Basophils % Nucleated RBC % Sodium Potassium Chloride Carbon Dioxide Anion Gap BUN Creatinine Creat Clearance w eGFR POC Glucometer 270 Random Glucose Hemoglobin A1c % Lactic Acid Calcium Phosphorus Magnesium Total Bilirubin Direct Bilirubin AST ALT Alkaline Phosphatase Creatine Kinase Troponin I B-Natriuretic Peptide Total Protein Albumin Urine Color Urine Appearance Urine pH Ur Specific [place] Urine Protein Urine Glucose (UA) Urine Ketones Urine Blood Urine Nitrite Urine Bilirubin Urine Urobilinogen Ur Leukocyte Esterase Acetone, Qual Active Medications Generic Name Dose Route Start Last Admin Trade Name Freq PRN Reason Stop Dose Admin Acetaminophen 1,000 mg 09/28/18 16:35 09/29/18 03:31 Ofirmev Injection - IVPB 1,000 mg Q6H PRN Administration FEVER Chlorhexidine Gluconate 1 applic 09/28/18 22:00 Hibiclens For Decolonization - TP HS RADHA Sodium Chloride 1,000 mls @ 125 mls/hr 09/29/18 09:46 09/29/18 11:24 Normal Saline - IV 125 mls/hr ASDIR RADHA Administration Insulin Aspart 1 vial 09/29/18 11:00 09/29/18 11:44 Novolog Vial Sliding Scale - SQ 8 units ACHS RADHA Administration Protocol Insulin Detemir 30 units 09/29/18 22:00 Levemir Vial SQ HS [facility] ASSESSMENT/PLAN: Patient is 23 year with history of insulin dependent diabetes (diagnosed at age 13), DKA and appendectomy. He presents to the ED for general malaise, tachycardia, and hyperglycemia at home. No shortness of breath on admission. He was also noted to have a fever of 102.4 on admission. He presented with severe volume depletion with a potassium of 4.7. anion gap of 19 and acetone small positive. Given 1 liter of IVF in the ED, started on insulin drip and aggressive fluid hydration. He was being treated for early DKA. His anion gap closed after a few hours on insulin drip Endocrine: DKA, resolved DKA in the setting of insulin non adherence. Insulin drip discontinued overnight. gap closed, bicarb normal, acetone negative Patient is a young non compliant type 1 diabetic who needs close outpatient follow up. He has been in DKA about 4 months ago 2/2 to non compliance. He may benefit from a Smart Patch to measure blood sugar without fingersticks and/ or implanted insulin pump (if insurance allows). On discharge, please refer to Dr. Torres His short acting glucose has been tightened. ID: Rule out sepsis presents with tachycardia, fevers of 102, chills and general malaise. blood cultures negative Monitor off antibiotics per ID. No longer requires ICU level of care as he no longer in DKA. fen NS @ 125 monitor electrolytes diabetic diet prophy young ambulatory patient. los < 48 hours. defer a/c full code Visit type - Emergency Visit Emergency Visit: Yes ED Registration Date: 09/28/18 Care time: The patient presented to the Emergency Department on the above date and was hospitalized for further evaluation of their emergent condition. - New Patient This patient is new to me today: No - Critical Care Critical Care patient: No - Discharge Referral Referred to [facility] Med P.C.: No
[2018-09-29 13:12] LABS: ACETONE SERUM NEGATIVE (NEGATIVE)
--- NOTE | 2018-09-29 14:13 | CONSULT ---
Consult Consult Specialty:: Endocrilonolgy Referred by:: Connie Boyd Reason for Consultation:: Hyperglycemia - History of Present Illness Chief Complaint: Hyperglycemia History of Present Illness: This is a 23 year old male with h/o T1DM since age 13 who presented to the ER with elevated blood glucose. Patient stated that he measured his blood glucose and found it to be over 500 in the morning after eating. The patient also complained of associated body aches, generalized weakness, tactile body aches, nausea, cough productive of yellow sputum, polydypsia, and polyuria. Pt found to have blood sugar >400, A Gap of 19 and CO2 of 20. Pt was treated with IV hydration and IV Insulin with normalization of A Gap and improvement in blood sugar. Patient states that he takes 30 units of Basaglar in the morning, last took yesterday morning. Doesn't take any premeal Insulin. FS at home 200s with occ low in the 50s. Last hospitalization was round 3 months ago for hyperglycemia. Denies polyuria, polydipsia or nocturia. No visual sympotoms. Last Oph visit about 3 months ago which was normal as per pt. - History Source History Provided By: Patient, Family Member, Medical Record (Type 1) - Past Medical History Endocrine: Yes: Diabetes Mellitus (On insulin) - Alcohol/Substance Use Hx Alcohol Use: Yes ("sometimes") - Smoking History Smoking history: Never smoked Have you smoked in the past 12 months: No Home Medications - Allergies Allergies/Adverse Reactions: Allergies Allergy/AdvReac Type Severity Reaction Status Date / Time No Known Allergies Allergy Verified 12/17/17 01:34 - Home Medications Home Medications: Ambulatory Orders Insulin Glargine,Hum.rec.anlog [Basaglar Kwikpen U-100] 30 unit SQ DAILY Family Disease History - Family Disease History Family Disease History: Diabetes: Father Review of Systems - Review of Systems Constitutional: reports: Malaise Eyes: reports: No Symptoms HENT: reports: No Symptoms Neck: reports: No Symptoms Cardiovascular: reports: No Symptoms Respiratory: reports: No Symptoms Gastrointestinal: reports: No Symptoms Genitourinary: reports: No Symptoms Musculoskeletal: reports: No Symptoms Neurological: reports: No Symptoms Endocrine: reports: No Symptoms Physical Exam Vital Signs: Vital Signs Temperature 98.1 F 09/29/18 10:00 Pulse Rate 91 H 09/29/18 10:00 Respiratory Rate 20 09/29/18 10:00 Blood Pressure 123/76 09/29/18 10:00 O2 Sat by Pulse Oximetry (%) 97 09/29/18 06:57 Constitutional: Yes: No Distress, Calm Eyes: Yes: Conjunctiva Clear, EOM Intact HENT: Yes: Atraumatic, Normocephalic Neck: Yes: Supple, Trachea Midline Cardiovascular: Yes: Regular Rate and Rhythm Respiratory: Yes: Regular, CTA Bilaterally Gastrointestinal: Yes: Normal Bowel Sounds, Soft Musculoskeletal: Yes: WNL Extremities: Yes: WNL Edema: No Neurological: Yes: Alert, Oriented Labs: CBC, BMP 09/29/18 08:50 09/29/18 08:50 Assessment/Plan AP: T1DM with hyperglycemia Fever: Afebrile today morning ID Consult noted. Off Abx Diet exercise discussed Nutrition consult Moniter lytes. Replace lytes as necessary IV hydration D5 until food intake is adequate BGM QACHS and 3 AM Levemir 30 units starting tomorrow 6 AM as pt got last dose at around 4 AM today and pt usually takes long acting Insulin in the morning. Novolog Coverage premeals and HS Will f/u
[2018-09-29] MEDS ORDERED: MAG HYDROX/ALH/SMC/DPHA/LIDO 240 ML MOUTHWASH MM PRN (18:26)
--- NOTE | 2018-09-29 21:19 | HOSP ---
Physical Examination Vital Signs: Vital Signs Temperature 98.5 F 09/29/18 20:22 Pulse Rate 88 09/29/18 20:22 Respiratory Rate 20 09/29/18 20:25 Blood Pressure 115/65 09/29/18 20:22 O2 Sat by Pulse Oximetry (%) 98 09/29/18 20:25 Labs: CBC, BMP 09/29/18 08:50 09/29/18 08:50 Hospitalist Encounter Assessment: Patient reportedly positive for group A strep as per nursing. Will order Amoxacillin 500mg po q8hrs.
[2018-09-29] MEDS ORDERED: INSULIN (NOVOLOG) ASPART 100 UNITS/ML 10ML VIAL ONE (21:25)
[2018-09-29] MEDS ORDERED: INSULIN (LEVEMIR) 100 UNITS/ML UNITS SQ SCH (22:00)
[2018-09-29] MEDS: AMOXICILLIN 500 MG CAPSULE (FP) PO SCH (23:28)
[2018-09-30] MEDS: SODIUM CHLORIDE 1,000 ML IV SCH (06:09)
[2018-09-30] MEDS: INSULIN SLIDING SCALE (NOVOLOG) 1 VIAL SQ SCH (06:14)
[2018-09-30] MEDS: INSULIN (LEVEMIR) 100 UNITS/ML UNITS SQ SCH ×2 (06:15→07:00)
[2018-09-30] MEDS: AMOXICILLIN 500 MG CAPSULE (FP) PO SCH ×2 (06:15→14:40)
[2018-09-30 08:09] LABS: BASO % 0.2 % (0-2.0); EOS % 0.7 % (0-4.5); HEMATOCRIT 46.4 % (35.4-49); HEMOGLOBIN 16.2 GM/dL (11.7-16.9); LYMPH % 25.8 % (8-40); MCH 30.5 pg (25.7-33.7); MCHC 34.8 g/dl (32.0-35.9); MEAN CELL VOLUME 87.6 fl (80-96); MEAN PLT VOLUME 8.4 fl (7.5-11.1); MONO % 9.7 % (3.8-10.2); NEUT % 63.6 % (42.8-82.8); PLATELET COUNT 175 K/MM3 (134-434); RDW 12.5 % (11.9-15.9); WHITE BLOOD COUNT 6.9 K/mm3 (4.0-10.0)
--- NOTE | 2018-09-30 08:58 | PN ---
Progress Note (short form) - Note Progress Note: Denies any complaints Vital Signs Period Temp Pulse Resp BP Sys/Newman Pulse Ox Last 24 Hr 98.1 F-98.7 F 82-91 20-20 115-129/65-79 97-98 PE: AOx3 Neck: Supple, No JVD HEENT: PERRL, EOMI Lungs: CTA CVS: S1S2 Abd: Benign Ext: No edema Neuro: No focal deficie CMP Sodium 140 mmol/L (136-145) 09/29/18 08:50 Potassium 3.8 mmol/L (3.5-5.1) 09/29/18 08:50 Chloride 106 mmol/L (98-107) 09/29/18 08:50 Carbon Dioxide 26 mmol/L (21-32) 09/29/18 08:50 Anion Gap 8 MMOL/L (8-16) 09/29/18 08:50 BUN 12 mg/dL (7-18) 09/29/18 08:50 Creatinine 0.8 mg/dL (0.55-1.3) 09/29/18 08:50 Creat Clearance w eGFR > 60 (>60) 09/29/18 08:50 POC Glucometer 246 UNITS (80-120) 09/30/18 08:43 Random Glucose 145 mg/dL (74-106) H 09/29/18 08:50 Hemoglobin A1c % 11.5 % (4.2-6.3) H 09/28/18 19:20 Lactic Acid 2.8 mmol/L (0.4-2.0) H* 09/28/18 19:20 Calcium 9.3 mg/dL (8.5-10.1) 09/29/18 08:50 Phosphorus 2.4 mg/dL (2.5-4.9) L 09/29/18 08:50 Magnesium 2.1 mg/dL (1.8-2.4) 09/29/18 08:50 Total Bilirubin 0.4 mg/dL (0.2-1) 09/29/18 08:50 Direct Bilirubin 0.1 mg/dL (0.0-0.2) 09/28/18 16:12 AST 11 U/L (15-37) L 09/29/18 08:50 ALT 15 U/L (13-61) 09/29/18 08:50 Alkaline Phosphatase 67 U/L (45-117) 09/29/18 08:50 Creatine Kinase 123 U/L (26-308) 09/28/18 12:23 Troponin I < 0.02 ng/ml (0.00-0.05) 09/28/18 12:23 B-Natriuretic Peptide 39.8 pg/ml (5-125) 09/28/18 16:12 Total Protein 6.2 g/dl (6.4-8.2) L 09/29/18 08:50 Albumin 3.4 g/dl (3.4-5.0) 09/29/18 08:50 Current Medications Generic Name Dose Route Start Last Admin Trade Name Freq PRN Reason Stop Dose Admin Acetaminophen 1,000 mg 09/28/18 16:35 09/29/18 16:54 Ofirmev Injection - IVPB 1,000 mg Q6H PRN Administration FEVER Amoxicillin 500 mg 09/29/18 22:00 09/30/18 06:15 Amoxicillin - PO 500 mg TID RADHA Administration Sodium Chloride 1,000 mls @ 125 mls/hr 09/29/18 09:46 09/30/18 06:09 Normal Saline - IV 125 mls/hr ASDIR RADHA Administration Insulin Aspart 1 vial 09/29/18 16:30 09/30/18 06:14 Novolog Vial Sliding Scale - SQ 14 units TIDAC RADHA Administration Protocol Insulin Aspart 1 vial 09/29/18 22:00 09/29/18 21:26 Novolog Vial Sliding Scale - SQ 2 units HS RADHA Administration Protocol Insulin Detemir 30 units 09/30/18 06:00 09/30/18 06:15 Levemir Vial SQ 30 units AM RADHA Administration Lidocaine/Aluminum/Magnesium/Simeth 5 ml 09/29/18 18:26 Magic Mouthwash *Sjr Formula* - MM Q6HPO PRN ORAL PAIN/MOUTH SORES AP: T1DM with hyperglycemia Fever: Afebrile now High blood sugar in the morning possible secondary to diet or wearing off of effect of Levemir as last dose was about 26 hrs ago CMP pending Nutrition consult Moniter lytes. Replace lytes as necessary IV hydration BGM QACHS and 3 AM Levemir 30 units daily at 6 AM. Increase Novolog Coverage premeals and continue same at HS Will f/u
[2018-09-30] MEDS ORDERED: INSULIN SLIDING SCALE (NOVOLOG) 1 VIAL SQ SCH (09:00)
[2018-09-30 09:09] LABS: ALBUMIN 3.1 g/dl (3.4-5.0); ALK PHOS 66 U/L (45-117); ANION GAP 9 MMOL/L (8-16); BILIRUBIN,TOTAL 0.7 mg/dL (0.2-1); BLOOD UREA NITROGEN 12 mg/dL (7-18); CALCIUM 8.7 mg/dL (8.5-10.1); CHLORIDE 100 mmol/L (98-107); CO2 23 mmol/L (21-32); CREATININE 0.9 mg/dL (0.55-1.3); POTASSIUM 3.8 mmol/L (3.5-5.1); SGOT/AST 8 U/L (15-37); SGPT/ALT 15 U/L (13-61); SODIUM 132 mmol/L (136-145)
[2018-09-30 09:14] LABS: GLUCOSE,RANDOM 391 mg/dL (74-106)
[2018-09-30 09:57] LABS: MAGNESIUM 1.9 mg/dL (1.8-2.4); PHOSPHOROUS 2.5 mg/dL (2.5-4.9)
[2018-09-30 10:08] VITALS: BP 113/82; PULSE 80; TEMP 98.2
--- NOTE | 2018-09-30 12:51 | PN ---
Progress Note, Physician - Current Medication List Current Medications: Active Medications Acetaminophen (Ofirmev Injection -) 1,000 mg IVPB Q6H PRN PRN Reason: FEVER Last Admin: 09/29/18 16:54 Dose: 1,000 mg Amoxicillin (Amoxicillin -) 500 mg PO TID RADHA Last Admin: 09/30/18 06:15 Dose: 500 mg Sodium Chloride (Normal Saline -) 1,000 mls @ 125 mls/hr IV ASDIR [facility] Last Admin: 09/30/18 06:09 Dose: 125 mls/hr Insulin Aspart (Novolog Vial Sliding Scale -) 1 vial SQ HS [facility]; Protocol Last Admin: 09/29/18 21:26 Dose: 2 units Insulin Aspart (Novolog Vial Sliding Scale -) 1 vial SQ TIDAC [facility]; Protocol Last Admin: 09/30/18 11:48 Dose: 10 units Insulin Detemir (Levemir Vial) 30 units SQ AM RADHA Last Admin: 09/30/18 07:00 Dose: Not Given Lidocaine/Aluminum/Magnesium/Simeth (Magic Mouthwash *Sjr Formula* -) 5 ml MM Q6HPO PRN PRN Reason: ORAL PAIN/MOUTH SORES - Objective Vital Signs: Vital Signs Temperature 98.2 F 09/30/18 10:00 Pulse Rate 80 09/30/18 10:00 Respiratory Rate 20 09/30/18 10:00 Blood Pressure 113/82 09/30/18 10:00 O2 Sat by Pulse Oximetry (%) 98 09/29/18 20:25 Labs: CBC, BMP 09/30/18 07:00 09/30/18 07:00 INR, PTT INR 0.97 (0.83-1.09) 09/28/18 12:23
[2018-09-30] MEDS ORDERED: PT OWN MED DRAWER 7, Y5N ONE (14:39)
--- NOTE | 2018-09-30 15:47 | DS ---
Physical Examination Vital Signs: Vital Signs Temperature 98.2 F 09/30/18 10:00 Pulse Rate 80 09/30/18 10:00 Respiratory Rate 20 09/30/18 10:00 Blood Pressure 113/82 09/30/18 10:00 O2 Sat by Pulse Oximetry (%) 98 09/29/18 20:25 Constitutional: Yes: Well Nourished, No Distress, Calm Eyes: Yes: Conjunctiva Clear, EOM Intact, PERRL HENT: Yes: Atraumatic, Normocephalic Neck: Yes: Supple, Trachea Midline Cardiovascular: Yes: Regular Rate and Rhythm Respiratory: Yes: Regular, CTA Bilaterally Gastrointestinal: Yes: Normal Bowel Sounds, Soft ...Rectal Exam: Yes: Deferred Musculoskeletal: Yes: WNL Extremities: Yes: WNL Edema: No Peripheral Pulses WNL: Yes Peripheral Pulses: Left Radial: 2+, Right Radial: 2+, Left Doralis Pedis: 2+, Right Dorsalis Pedis: 2+ Integumentary: Yes: WNL Neurological: Yes: Alert, Oriented ...Motor Strength: WNL Psychiatric: Yes: Alert, Oriented Labs: CBC, BMP 09/30/18 07:00 09/30/18 07:00 Discharge Summary Reason For Visit: DIABETIC KETOACIDOSIS Current Active Problems DKA (diabetic ketoacidoses) (Acute) Procedures: Principal: CXR 09/28/2018: Impression: No acute chest pathology. Hospital Course: 23 year old male with a PMH of Type 1 insulin dependent diabetes who presents to the ER with elevated blood glucose. Patient states he measured his blood glucose and found it to be over 500 this morning after eating. The patient is also complaining of associated body aches, generalized weakness, tactile body aches, nausea, cough productive of yellow sputum, polydypsia, and polyuria. He was also noted to have a fever of 102.4 on admission. patient also with AMS, He was started on ceftriaxone which was switched to amoxicillin when his rapid throat culture grew strep A. Additionally, patient started on iv fluids and on insulin for DKA. Hospital Course: anion gap now closed, dka resolved. insulin drip stopped and pt transferred out of ICU. He was seen by endocrinology and transitioned to a sliding scale. Condition: Improved - Instructions Diet, Activity, Other Instructions: Appt with Dr. Leon [address] [place], [place] [phone] Saturday @ 1:00pm PCP Appt: Dr. Javi Perez [address] [place] [address] October 06 2018 @ 1:30pm Referrals: Asa Heller MD [Staff Physician] - Javi Perez MD [Staff Physician] - Disposition: HOME - Home Medications Comprehensive Discharge Medication List: Ambulatory Orders Insulin Glargine,Hum.rec.anlog [Basaglar Kwikpen U-100] 30 unit SQ DAILY Amoxicillin - [Amoxicillin 500mg Capsule -] 500 mg PO TID 7 Days #21 capsule Insulin Sliding Scale [Novolog Vial Sliding Scale -] See Protocol SQ HS 30 Days #2 units 09/30/18 Insulin Sliding Scale [Novolog Vial Sliding Scale -] See Protocol SQ TIDAC 30 Days #4 units 09/30/18 This patient is new to me today: Yes Date on this admission: 09/30/18 Emergency Visit: Yes ED Registration Date: 09/28/18 Care time: The patient presented to the Emergency Department on the above date and was hospitalized for further evaluation of their emergent condition. Critical Care patient: No - Discharge Referral Referred to [facility] Med P.C.: No
== END 2018-09-30 16:14 | disposition home or self-care (01) | DRG 420 ==
LOC: JER 11:47 → JERBED 13:16 → J6S 09-29 05:21
PROVIDERS: ADMIT Internal Medicine; ATTEND Nurse Practitioner Family
DX: E10.10 Type 1 diabetes mellitus with ketoacidosis without coma (principal); Z79.4 Long term (current) use of insulin; D72.829 Elevated white blood cell count, unspecified; R00.0 Tachycardia, unspecified; R50.9 Fever, unspecified
CPT/HCPCS: 36415; 71045-TC-FY; 80048; 80053; 80076; 81003; 82009; 82550; 82803; 82962; 83036; 83605; 83735; 83880; 84100; 84484; 85025; 85610; 87040; 87086; 87804; 87880; 93005; 93010; 99285-25; J0131; J7030

== ENCOUNTER 2019-03-17 11:22 | Emergency (ER) | payer OTHER | END 2019-03-17 17:58 | disposition home or self-care (01) | LOC: JER 11:22 ==